=== PATIENT | female | born 1970 | race Caucasian/White ===

== ENCOUNTER → 2019-05-03 12:50 | Outpatient (CLI) | payer BC, SELFPAY ==
--- NOTE | ~2019-05-03 | MM_ITS ---
EXAMINATION: MM screening [facility] BI w radha HISTORY: Screening mammogram TECHNIQUE: Craniocaudal and mediolateral oblique 3-D tomosynthesis images were obtained and synthetic 2-D images were generated. CAD analysis was submitted and interpreted. COMPARISON: 04/16/2018, 04/03/2017, 02/29/2016 BREAST PARENCHYMAL COMPOSITION: There are scattered areas of fibroglandular density. FINDINGS: RIGHT BREAST: An asymmetry is present in the subareolar aspect of the slightly outer breast 2 cm from the nipple on the craniocaudal view. LEFT BREAST: There is a focal asymmetry in the anterior third of the subareolar aspect of the breast. IMPRESSION: 1. Bilateral breast findings as described above. 2. Additional mammographic views and possible breast ultrasound are recommended. BI-RADS Category 0: Incomplete: Needs additional imaging evaluation. Reviewed, dictated and finalized at location A. ER IMPRESSION: 1. Bilateral breast findings as described above. 2. Additional mammographic views and possible breast ultrasound are recommended . BI-RADS Category 0: Incomplete: Needs additional imaging evaluation.
== END ==
PROVIDERS: Visit Provider Obstetrics & Gynecology
DX: Z12.31 Encounter for screening mammogram for malignant neoplasm of breast (principal); R92.8 Other abnormal and inconclusive findings on diagnostic imaging of breast
CPT/HCPCS: 77063; 77067

== ENCOUNTER → 2019-05-17 08:53 | Outpatient (CLI) | payer BC, SELFPAY ==
--- NOTE | ~2019-05-17 | MMUS_ITS ---
EXAMINATION: MM diagnostic mammo BI, US breast LT limited HISTORY: Right breast asymmetry and focal asymmetry of the left breast on screening mammogram TECHNIQUE: Additional 3-D tomosynthesis images of the breasts were performed and synthetic 2-D images were generated. CAD analysis was submitted and interpreted. High resolution limited left breast ultr asound was performed. COMPARISON: 05/03/2019, 04/16/2018, 04/03/2017, 02/29/2016 FINDINGS: MAMMOGRAPHIC FINDINGS: Right breast: The subareolar right breast asymmetry described on screening mammogram does not persist with spot compression. Left breast: A subtle focal asymmetry persists in the subareolar aspect of the breast with spot compr ession. No associated architectural distortion or calcification are seen. ULTRASOUND: There is no evidence of focal suspicious solid or cystic mass in the vicinity of the mammographic fin ding in question. Mildly dilated subareolar duct is seen which accounts for the mammographic finding. IMPRESSION: 1. No mammographic or sonographic evidence of malignancy. 2. Recommend routine screening mammography in one year. BI-RADS Category 2: Benign finding(s). Reviewed, dictated and finalized at location A. DESK TROUBLE LOCATOR IMPRESSION: 1. No mammographic or sonographic evidence of malignancy. 2. Recommend routine screening mammography in one year. BI-RADS Category 2: Benign finding(s).
== END ==
PROVIDERS: Visit Provider Obstetrics & Gynecology
DX: R92.8 Other abnormal and inconclusive findings on diagnostic imaging of breast (principal)
CPT/HCPCS: 76642; 77066

== ENCOUNTER 2019-06-11 20:56 | Emergency (ER) | payer BC, SELFPAY ==
[2019-06-11 20:57] VITALS: BP 166/92; PULSE 90; RESP 20; TEMP 36.7; O2SAT 99
--- NOTE | 2019-06-11 21:32 | ED.WOUNDLAC ---
HPI - Wound/Laceration General Chief Complaint: Wound/Laceration Stated Complaint: R hand dog bite Time Seen by Provider: 06/11/19 21:32 Source: patient Mode of arrival: ambulatory Limitations: no limitations History of Present Illness HPI narrative: A 48 y/o female presents to the ED with c/o right hand wound. Pt states that yesterday morning her dog bit her in her right hand by her 5th finger. She notes that today her right arm started to hurt, so she decided to come to the ED. Pt got a Tetanus shot today at [facility]. She adds that her dog is UTD on his vaccinations. Pt declines a X-Ray in the room. She denies fever and numbness. Onset (ago): day(s) (1) Extremity Location: Right: hand (5th finger) Place: home Patient tetanus UTD: Yes Associated symptoms: pain (Right arm, right 5th finger) Related Data Home Medications Medication Instructions Recorded Confirmed amlodipine 5 mg tablet 5 mg PO DAILY 04/05/19 Allergies Allergy/AdvReac Type Severity Reaction Status Date / Time Penicillins Allergy Intermediate hives Verified 06/11/19 21:12 Review of Systems Review of Systems: All systems reviewed & are unremarkable except as noted in HPI and below Constitutional: Constitutional: Denies fever(s) Musculoskeletal: Musculoskeletal: Reports arthralgias (Right arm, right 5th finger) Integumentary/Breasts: Skin/Breast: Reports wounds (Right 5th finger) Neurologic: Denies numbness PMFSH Past Medical History Medical History (Updated 06/11/19 @ 21:50 by Jackie Maria MD) Benign reactive hypertension OAB (overactive bladder) Surgical History Surgical History (Updated 06/11/19 @ 21:37 by Ning Bell) History of anterior cruciate ligament surgery History of bunionectomy of right great toe History of section History of tubal ligation Family History Family History Father Diabetes mellitus Other Family history of cardiovascular disease Family history of kidney disease Hypertension Social History Social History Smoking status: Never smoker Second hand tobacco smoke exposure: No Alcohol intake: current Drinks per week: 2 Substance use: never Substance use type: does not use Gender identity (if verbalized by the patient): Female Exam Narrative: Exam Narrative: General appearance: Well-developed, well-nourished Skin: Normal color, right hand exam showed few scratches and 1 puncture wound at the right fifth finger. Head: Normocephalic, nontraumatic Chest and respiratory: Airway patent, no respiratory distress, no accessory muscle use Heart: Regular rate/rhythm Vascular: Normal peripheral pulses, normal capillary refill. Musculoskeletal: Normal range of motion, nontender back Course Course Emergency Course: Stable Vital Signs Vital signs: Vital Signs Temperature 36.7 C 06/11/19 20:57 Pulse Rate 90 06/11/19 20:57 Respiratory Rate 20 06/11/19 20:57 Blood Pressure 166/92 H 06/11/19 20:57 Pulse Oximetry 99 06/11/19 20:57 Temperature 36.7 C 06/11/19 20:57 Pulse Rate 90 06/11/19 20:57 Respiratory Rate 20 06/11/19 20:57 Blood Pressure 166/92 H 06/11/19 20:57 Pulse Oximetry 99 06/11/19 20:57 MDM - Wound/Laceration MDM Narrative Medical decision making narrative: Dog bite right fifth finger, yesterday, received a tetanus shot today. Concerned about infection. Patient declined x-ray of the hand rule out any bone fracture. Patient will be discharged on Augmentin. Differential Diagnosis Differential diagnosis: Likely abrasion and other (Puncture wound secondary to dog
[2019-06-11] MEDS: metroNIDAZOLE 250 MG TABLET 500 MG PO (22:17)
[2019-06-11] MEDS: DOXYCYCLINE HYCLATE 100 MG TABLET PO (22:17)
== END 2019-06-11 22:03 | disposition home or self-care (01) ==
PROVIDERS: Emergency Provider Emergency Medicine; PCP Family Medicine
DX: S61.256A Open bite of right little finger without damage to nail, initial encounter (principal); I10 Essential (primary) hypertension; N32.81 Overactive bladder; W54.0XXA Bitten by dog, initial encounter
CPT/HCPCS: 99283; A9270

== ENCOUNTER 2020-02-27 00:37 | Outpatient (CLI) | payer BC, SELFPAY ==
[2020-02-27 20:45] LABS: SARS-CoV-2 RNA PCR Negative
== END 2020-02-27 00:38 | disposition home or self-care (01) ==
LOC: ANHCOVIDDT 00:37
PROVIDERS: PCP Family Medicine; Visit Provider Internal Medicine Gastroenterology
DX: Z01.818 Encounter for other preprocedural examination (principal); Z20.828 Contact with and (suspected) exposure to other viral communicable diseases
CPT/HCPCS: 87635; C9803; U0003

== ENCOUNTER 2020-03-01 01:34 | Day surgery (SDC) | payer BC, SELFPAY ==
[2020-02-22 12:08] VITALS: BMI 31.4
--- NOTE | 2020-03-01 12:04 | WPDANESEPPF ---
Anes - Initial Pre Proc Eval Procedure: Operation Date: 03/01/20 13:45 Proposed Procedures p Screening Colonoscopy - Pa Boo MD Date/Time: 03/01/20 12:04 Surgeon: Pa Boo MD Pre Op Diagnosis: neoplasm screening Patient Data Age: 49 Gender: F Height: 5 ft 7 in Weight: 90.9 kg Allergies Allergy/AdvReac Type Severity Reaction Status Date / Time Penicillins Allergy Intermediate hives Verified 02/22/20 12:04 Home Medications Medication Instructions Recorded Confirmed Type amlodipine 5 mg-valsartan 160 mg 1 tablet PO DAILY #90 tablet 12/16/19 02/22/20 Rx tablet hydrochlorothiazide 12.5 mg tablet 12.5 mg PO DAILY #90 tablet 12/16/19 02/22/20 Rx metoprolol succinate 50 mg 50 mg PO DAILY #90 tablet 12/16/19 02/22/20 Rx tablet,extended release 24 hr phentermine 37.5 mg capsule 37.5 mg PO DAILY #30 cap 12/16/19 02/22/20 Rx peg 3350-electrolytes 236 240 ml PO Q10M #4000 ml 01/20/20 Rx gram-22.74 gram-6.74 gram-5.86 gram solution solifenacin 10 mg PO DAILY 02/22/20 02/22/20 History Patient hx anesthesia problems: none Family hx anesthesia problems: none PMFSH Past Medical History Medical History (Updated 12/16/19 @ 13:40 by Manisha Rudd PA-C) Benign reactive hypertension OAB (overactive bladder) Surgical History Surgical History History of anterior cruciate ligament surgery History of bunionectomy of right great toe History of section History of tubal ligation Family History Family History Father Diabetes mellitus Other Family history of cardiovascular disease Family history of kidney disease Hypertension Social History Social History (Updated 12/16/19 @ 13:16 by Elaina Clayton) Social History: Smoking status: Never smoker Second hand tobacco smoke exposure: No Alcohol intake: current Drinks per week: 2 Substance use: never Substance use type: does not use Living arrangements: alone Gender identity (if verbalized by the patient): Female Spiritual care concerns: No Anes - Eval Final PreProcedure Day of Procedure 03/01/20 12:04 Patient weight: overweight Heart: regular rate and rhythm Lungs: clear to auscultation Airway: Mallampati scale class II Neurological: alert and oriented Last oral intake: >/= 8 hours ASA classification: II Emergent: no Anesthetic plan: proceed Anesthesia type and monitoring: general GIVS and standard monitoring Informed Consent: The patient's anesthetic plan and its attendant risks and benefits were discussed with the patient/family/POA. Questions were solicited and answers provided to the satisfaction of the patient/family/POA.
[2020-03-01] MEDS: LACTATED RINGERS 1,000 ML 150 ML IV CONT (12:12)
[2020-03-01 12:22] VITALS: BP 155/87; PULSE 76; RESP 16; TEMP 36.4; O2SAT 98
--- NOTE | 2020-03-01 12:39 | PM.HPGS ---
History of Present Illness History of Present Illness Consent: Risks, benefits, and alternatives have been discussed and questions answered. Patient agrees to proceed with procedure. Chief complaint: neoplasm screening Narrative: Dana Castaneda is a 49 year old female here for first screening colonoscopy Review of Systems Constitutional: Constitutional: Denies headache(s) and Denies weakness Eyes: Eyes: Denies blurry vision ENT: Reports Normal hearing present, Denies headache(s) and Denies neck pain Cardiovascular: Cardiovascular: Denies chest pain and Denies dyspnea Respiratory: Respiratory: Denies dyspnea Gastrointestinal: Gastrointestinal: Reports no additional gastrointestinal complaints Genitourinary: Genitourinary: Denies dysuria Musculoskeletal: Musculoskeletal: Denies neck pain Integumentary/Breasts: Skin/Breast: Denies dry skin Neurologic: Reports Normal hearing present, Denies headache(s) and Denies weakness Psychiatric: Psychiatric: Denies anxiety Endocrine: Endocrine: Denies change in body appearance Hematologic/Lymphatic: Hematologic/Lymphatic: Denies easy bleeding Allergic/Immunologic: Allergic/Immunologic: Denies urticaria PMFSH Past Medical History Medical History (Updated 12/16/19 @ 13:40 by Manisha Rudd PA-C) Benign reactive hypertension OAB (overactive bladder) Surgical History Surgical History History of anterior cruciate ligament surgery History of bunionectomy of right great toe History of section History of tubal ligation Family History Family History Father Diabetes mellitus Other Family history of cardiovascular disease Family history of kidney disease Hypertension Social History Social History (Updated 12/16/19 @ 13:16 by Elaina Clayton) Social History: Smoking status: Never smoker Second hand tobacco smoke exposure: No Alcohol intake: current Drinks per week: 2 Substance use: never Substance use type: does not use Living arrangements: alone Gender identity (if verbalized by the patient): Female Spiritual care concerns: No Meds Home Medications and Allergies Home Medications Medication Instructions Recorded Confirmed Type amlodipine 5 mg-valsartan 160 mg 1 tablet PO DAILY #90 tablet 12/16/19 02/22/20 Rx tablet hydrochlorothiazide 12.5 mg tablet 12.5 mg PO DAILY #90 tablet 12/16/19 02/22/20 Rx metoprolol succinate 50 mg 50 mg PO DAILY #90 tablet 12/16/19 02/22/20 Rx tablet,extended release 24 hr phentermine 37.5 mg capsule 37.5 mg PO DAILY #30 cap 12/16/19 02/22/20 Rx peg 3350-electrolytes 236 240 ml PO Q10M #4000 ml 01/20/20 Rx gram-22.74 gram-6.74 gram-5.86 gram solution solifenacin 10 mg PO DAILY 02/22/20 02/22/20 History Allergies Allergy/AdvReac Type Severity Reaction Status Date / Time Penicillins Allergy Intermediate hives Verified 03/01/20 12:21 Vital Signs Vital Signs - 24 hr 03/01/20 12:22 Temperature 97.6 F Pulse Rate 76 Respiratory Rate 16 Blood Pressure 155/87 H Pulse Oximetry 98 Exam Const: General: comfortable and no acute distress HENMT: General nose exam: Normal nares present Eyes: General: appearance normal, both eyes and all related structures Neck: Neck: no JVD Resp: Auscultation: clear to auscultation bilaterally Cardio: Rate: regular rate Rhythm: regular rhythm GI: Inspection: non-distended GI Palp: Yes Soft to palpation Skin: General skin exam: normal color Neuro: General: gait normal Speech: normal speech Extrem: General: normal to inspection Psych: Mental Status: mental status grossly normal Assessment and Plan Assessment and plan (1) Screening for colon cancer: Code(s): Z12.11 - Encounter for screening for malignant neoplasm of colon Status: Acute Assessment and Plan: will proc
[2020-03-01 12:56] VITALS: BP 117/77; PULSE 73; RESP 20; O2SAT 100
[2020-03-01 13:06] VITALS: BP 120/77; PULSE 73; RESP 20; O2SAT 100
[2020-03-01 13:16] VITALS: BP 132/86; PULSE 58; RESP 20; O2SAT 100
== END 2020-03-01 13:35 | disposition home or self-care (01) ==
PROVIDERS: PCP Family Medicine; Visit Provider Internal Medicine Gastroenterology
PROC: 0DJD8ZZ Inspection of Lower Intestinal Tract, Via Natural or Artificial Opening Endoscopic (ICD-10-PCS; CPT 45378; principal; 2020-03-01 13:45)
DX: Z12.11 Encounter for screening for malignant neoplasm of colon (principal); D12.0 Benign neoplasm of cecum; D12.3 Benign neoplasm of transverse colon; K57.30 Diverticulosis of large intestine without perforation or abscess without bleeding; K62.89 Other specified diseases of anus and rectum; K64.8 Other hemorrhoids; I10 Essential (primary) hypertension; N32.81 Overactive bladder
CPT/HCPCS: 45380; 45385; 88305; J2704; J7120

== ENCOUNTER 2020-03-15 09:16 | Outpatient (NON) | payer BC, SELFPAY ==
[2020-03-15 22:01] LABS: SARS-CoV-2 RNA PCR Positive
== END 2020-03-15 09:17 ==
LOC: ANHCOVIDDT 09:17
PROVIDERS: PCP Family Medicine; Visit Provider Physician Assistant
DX: U07.1 COVID-19 (principal)
CPT/HCPCS: 87635; C9803; U0003

== ENCOUNTER → 2020-05-30 15:56 | Outpatient (CLI) | payer BC, SELFPAY ==
--- NOTE | ~2020-05-30 | MM_ITS ---
EXAMINATION: MM screening [facility] BI w radha HISTORY: Screening TECHNIQUE: Craniocaudal and mediolateral oblique 3-D tomosynthesis images were obtained and synthetic 2-D images were generated. CAD analysis was submitted and interpreted. COMPARISON: Comparison to multiple prior studies sequentially, with oldest reviewed study dated 01/28. BREAST PARENCHYMAL COMPOSITION: There are scattered areas of fibroglandular density. FINDINGS: There is no evidence of suspicious mass, calcification, or architectural distortion to sugg est malignancy in either breast. There has been no suspicious interval change. IMPRESSION: 1. No mammographic evidence of malignancy. 2. Recommend routine screening mammography in one year. BI-RADS Category 1: Negative Reviewed, dictated and finalized at location A. UTER NETWORK SUPPORT SPECIALIST
== END ==
PROVIDERS: Visit Provider Obstetrics & Gynecology
DX: Z12.31 Encounter for screening mammogram for malignant neoplasm of breast (principal)
CPT/HCPCS: 77063; 77067

== ENCOUNTER → 2020-07-17 03:47 | Outpatient (CLI) | payer BC, SELFPAY ==
[2020-07-17 20:31] LABS: SARS-CoV-2 RNA PCR Negative
== END ==
PROVIDERS: Visit Provider Podiatrist Foot & Ankle Surgery
DX: Z01.812 Encounter for preprocedural laboratory examination (principal); Z20.822 Contact with and (suspected) exposure to COVID-19
CPT/HCPCS: C9803; U0003; U0005

== ENCOUNTER 2020-07-17 08:42 | Outpatient (CLI) | payer BC, SELFPAY ==
[2020-07-17 10:18] LABS: Anion Gap 4 mmol/L (8-16); Blood Urea Nitrogen 14 mg/dL (7-17); Carbon Dioxide 32 mmol/L (22-30); Chloride 104 mmol/L (98-107); Estimated Glomerular Filt Rate > 60; Glucose 92 mg/dL (65-105); Potassium 4.1 mmol/L (3.4-5.0); Sodium 140 mmol/L (137-145)
--- NOTE | 2020-07-17 10:30 | ECG_ITS ---
Measurements Intervals [place] Rate: 74 P: -4 OK: 188 QRS: 7 QRSD: 90 T: 38 QT: 369 QTc: 411 Interpretive Statements SINUS RHYTHM POOR R WAVE PROGRESSION, ANTERIOR LEADS BASELINE ARTIFACT- I, II, III, AVR, AVL BORDERLINE ECG Electronically Signed On 07-17-2020 8:58:12 CDT by Alex Sanchez D.O.
== END 2020-07-17 08:43 | disposition home or self-care (01) ==
LOC: ANHSURGERY 08:45
PROVIDERS: Anesthesiology; PCP Family Medicine; Visit Provider Podiatrist Foot & Ankle Surgery
DX: Z79.899 Other long term (current) drug therapy (principal); I10 Essential (primary) hypertension; Z01.818 Encounter for other preprocedural examination
CPT/HCPCS: 36415; 80048; 93005

== ENCOUNTER 2020-07-20 02:04 | Day surgery (SDC) | payer BC, SELFPAY ==
[2020-07-11 13:37] VITALS: BMI 32.1
[2020-07-20] VITALS (7 sets, daily range): BP systolic 120–138; BP diastolic 72–85; PULSE 62–72; RESP 12–16; TEMP 36.5–37.2; O2SAT 96–100; BMI 32.9
--- NOTE | ~2020-07-20 | XR_ITS ---
EXAMINATION: XR surgery orthopedic DATE: 07/20/2020 10:41 INDICATION: Right foot arthrodesis TECHNIQUE: A fluoroscopic images of the right forefoot were obtained during procedure performed by Dr Scott Garcia. Radiologist was not present for the imaging or procedure. The amount of fluoroscopy time used during this procedure was 0.2 minutes. COMPARISON: None. FINDINGS: Ton Cylinder Inspector image demonstrates increased sclerosis and lucency along with loss of bone stock centered at th e first metatarsophalangeal joint reportedly related to a prior arthroplasty with failed Silastic imp lant. Subsequent images demonstrate placement of a dorsal plate and screws spanning the first metatar sophalangeal joint for attempted arthrodesis. Alignment following the fixation appears near-anatomic. No fractures identified. Remaining profile joint spaces in the forefoot appear relatively preserved. IMPRESSION: 1. Fluoroscopy utilized during reported Silastic implant explantation and subsequent instrumented fir st metatarsophalangeal arthrodesis. See procedure note for further detail. Reviewed, dictated and finalized at location A. IMPRESSION: 1. Fluoroscopy utilized during reported Silastic implant explantation and subse quent instrumented first metatarsophalangeal arthrodesis. See procedure note fo r further detail.
--- NOTE | 2020-07-20 07:14 | WPDHPUPDATE1 ---
History and Physical Update Update Date/Time: 07/20/20 07:14 History and Physical has been reviewed, including an updated exam of the patient. There are NO changes in the patient's condition. Risks, benefits, and alternatives have been discussed and questions answered. Patient agrees to proceed with procedure.
--- NOTE | 2020-07-20 07:14 | WPDANESEPPF ---
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 Patient Data Age: 49 Gender: F Height: 5 ft 7 in Weight: 93 kg Allergies Allergy/AdvReac Type Severity Reaction Status Date / Time Penicillins Allergy Intermediate hives Verified 07/11/20 13:36 Home Medications Medication Instructions Recorded Confirmed Type metoprolol succinate 50 mg 50 mg PO DAILY #90 tablet 12/16/19 07/11/20 Rx tablet,extended release 24 hr solifenacin 10 mg PO DAILY 02/22/20 07/11/20 History phentermine 37.5 mg capsule 37.5 mg PO DAILY #30 cap 04/18/20 07/11/20 Rx hydrochlorothiazide 12.5 mg tablet 12.5 mg PO DAILY #90 tablet 06/25/20 07/11/20 Rx amlodipine 5 mg-valsartan 160 mg 1 tablet PO DAILY #90 tablet 07/06/20 07/11/20 Rx tablet cholecalciferol (vitamin D3) 125 mcg PO DAILY 07/11/20 07/11/20 History [Vitamin D3] Patient hx anesthesia problems: none Family hx anesthesia problems: none PMFSH Past Medical History Medical History (Updated 07/20/20 @ 07:15 by Cam Todd MD) Benign reactive hypertension OAB (overactive bladder) Obesity Surgical History Surgical History History of anterior cruciate ligament surgery History of bunionectomy of right great toe History of section History of tubal ligation Family History Family History Father Diabetes mellitus Other Family history of cardiovascular disease Family history of kidney disease Hypertension Social History Social History Social History: Smoking status: Never smoker Second hand tobacco smoke exposure: No Alcohol intake: current Drinks per week: 2 Substance use: never Substance use type: does not use Living arrangements: alone Gender identity (if verbalized by the patient): Female Spiritual care concerns: No Anes - Eval Final PreProcedure Day of Procedure 07/20/20 07:14 Patient weight: obese Heart: regular rate and rhythm Lungs: clear to auscultation Airway: Mallampati scale class II Neurological: alert and oriented Last oral intake: >/= 8 hours ASA classification: II Emergent: no Anesthetic plan: proceed Anesthesia type and monitoring: general LMA and standard monitoring Informed Consent: The patient's anesthetic plan and its attendant risks and benefits were discussed with the patient/family/POA. Questions were solicited and answers provided to the satisfaction of the patient/family/POA.
[2020-07-20] MEDS: LACTATED RINGERS 1,000 ML 30 ML IV CONT ×2 (08:04→10:58)
[2020-07-20] MEDS: CLINDAMYCIN 900 MG/D5W 50 ML 900 MG/50 ML PIGGYBACK 50 MG IVPB (08:44)
[2020-07-20] MEDS: KETOROLAC 30 MG/ML VIAL (*BKC) IV PUSH (10:09)
--- NOTE | 2020-07-20 11:00 | SUR.OPER ---
Ribera right foot implants Mtp Fusion Plate [id number] - 1 2.7X12 LOCKING SCREW [id number] - 2 2.7X14 LOCKING SCREW [id number] -1 3.5X16 NONLOCKING SCREW [id number] - 1
--- NOTE | 2020-07-20 11:10 | PM.PROC ---
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 Painful failed silastic implant right foot 2. Joint degeneration first metatarsal phalangeal joint right foot Post-op diagnosis: same Procedure performed: 1. Removal of deep orthopedic hardware right foot 2. Arthrodesis of the first metatarsal phalangeal joint right foot with allograft 3. Bone marrow aspiration of calcaneus right foot Implants: 1. [employer] 5cc of Allomatrix DBM putty 2. [employer] Bone marrow aspirate kit 3. [employer] Tricortical Allograft 4. [employer] Cross check plate with three (2.7mm locking screws) one (3.5mm non locking screw) 5. [employer] Augment Anesthesia: GLMA and local Surgeon: Jr Garcia JR, DPM Estimated blood loss (mL): 5 Drains: No Packing: No Pathology: yes (Silastic implant with grommets and dark inflammatory tissue sent for gross and histopathology) Complications: No immediate complications Condition: stable Disposition: same day Findings: PROCEDURE IN DETAIL: Under mild sedation, the patient was brought into the operating room, placed on the operating table in supine position. A pneumatic ankle tourniquet was placed about the patient's ipsilateral ankle. Following general anesthesia, a common peroneal and tibial nerve block was performed with 20 cc of Exparel. The foot was then scrubbed, prepped, and draped in the usual aseptic manner. An Esmarch bandage was then used to exsanguinate the patient's foot and the pneumatic ankle tourniquet was then inflated. Surgery began in the following manner: Attention was directed to the dorsal aspect of the 1st metatarsophalangeal joint where there was a large subcutaneous prominence noted along the dorsomedial aspect of the joint. The entire joint was edematous. The incision was made starting along the central shaft of the 1st metatarsal and extending just proximal to the interphalangeal joint of the hallux. The incision was continued deep down through the subcutaneous tissues using sharp and blunt dissection. The capsule was ko in discoloration. All bleeders were cauterized as necessary. At this point, the dissection was continued down to the level of the periosteum and capsular structures overlying the 1st metatarsophalangeal joint. A full length periosteum and capsular incision was made just medial to the extensor hallucis longus tendon. The periosteum and capsular structures were freed from the base of the proximal phalanx as well as the distal 1st metatarsal. At this point, the 1st metatarsophalangeal joint was identified. There was a full silastic implant and grommets visualized within the first metatarsal phalangeal joint. The dark inflammatory tissue and bone was excised and sent for gross and histopathology along with the implant. Utilizing a sagittal bone saw, the hypertrophied 1st metatarsal was resected dorsally, medially, and laterally furthermore the sagittal saw blade was used to resect the nonviable bone until healthy bleeding bone was noted. A power bur was used to make sure that there were no remaining discolored bone. Nearly 18mm deficit of bone was noted after removal of implant. Next, a small 2mm incision was placed along the lateral wall of the calcaneus. The [employer] bone marrow aspirate kit was used to penetrate the calcaneus and draw approximately 2ccs of bone marrow aspirate. It was mixed with [employer] Allomatrix DR esteves until a solid consistency was developed. Next, 18mm by 16mm by 16mm wedge of [employer] allograft was contoured with a sagittal saw blade and rotary power huyen, to fill the bone deficit that remained after removal of the silastic implant and metal grommets. Fluoroscopy was used to make sure that, the bone fit tightly in the bone deficit and that the hallux was in a rectus position. Next, a 2-0 drill bit was used to further fenestrate the distal first metatarsal and head
[2020-07-20] MEDS: oxyCODONE HCL (*CRX) 5 MG TAB IR PO (12:14)
== END 2020-07-20 13:00 | disposition home or self-care (01) ==
PROVIDERS: PCP Family Medicine; Visit Provider Podiatrist Foot & Ankle Surgery
PROC: (CPT 28750; principal; 2020-07-20 09:00)
PROC: (CPT 28750; 2020-07-20 09:00)
DX: T84.84XA Pain due to internal orthopedic prosthetic devices, implants and grafts, initial encounter (principal); T84.498A Other mechanical complication of other internal orthopedic devices, implants and grafts, initial encounter; M19.071 Primary osteoarthritis, right ankle and foot; M65.861 Other synovitis and tenosynovitis, right lower leg; Y83.8 Other surgical procedures as the cause of abnormal reaction of the patient, or of later complication, without mention of misadventure at the time of the procedure; N32.81 Overactive bladder; I10 Essential (primary) hypertension; E66.9 Obesity, unspecified; Z68.32 Body mass index [BMI] 32.0-32.9, adult
CPT/HCPCS: 28750; 20680; 20999; 88304; A9270; C1713; C9290; J1100; J1170; J1885; J2250; J2405; J2704; J3010; J7120

== ENCOUNTER 2020-08-06 10:37 | Outpatient (CLI) | payer BC, SELFPAY ==
--- NOTE | ~2020-08-06 | US_ITS ---
EXAMINATION: US venous doppler LE RT DATE: 08/06/2020 11:25 INDICATION: Right lower limb pain and swelling. TECHNIQUE: Grayscale ultrasound images without and with compression and Doppler ultrasound images of the right lower extremity veins were obtained. COMPARISON: None. FINDINGS: The visualized portions of right common femoral vein, profunda (deep) femoral vein, femoral vein, pop liteal vein, peroneal veins, posterior tibial veins, and greater saphenous vein outflow are patent. IMPRESSION: 1. No deep venous thrombosis. Reviewed, dictated and finalized at location B.
== END 2020-08-06 10:38 | disposition home or self-care (01) ==
LOC: ANHIMG 10:37
PROVIDERS: PCP Family Medicine; Visit Provider Podiatrist Foot & Ankle Surgery
DX: M79.89 Other specified soft tissue disorders (principal)
CPT/HCPCS: 93971

== ENCOUNTER 2021-01-09 08:54 | Outpatient (CLI) | payer BC, SELFPAY ==
[2021-01-09 09:44] LABS: Anion Gap 8 mmol/L (8-16); Blood Urea Nitrogen 14 mg/dL (7-17); Calcium 9.9 mg/dL (8.4-10.2); Carbon Dioxide 28 mmol/L (22-30); Chloride 105 mmol/L (98-107); Estimated Glomerular Filt Rate > 60; Glucose 107 mg/dL (65-110); Potassium 4.2 mmol/L (3.4-5.0); Sodium 141 mmol/L (137-145)
== END 2021-01-09 08:55 | disposition home or self-care (01) ==
LOC: ANHSURGERY 08:57
PROVIDERS: Anesthesiology; PCP Family Medicine; Visit Provider Podiatrist Foot & Ankle Surgery
DX: Z01.818 Encounter for other preprocedural examination (principal); I10 Essential (primary) hypertension
CPT/HCPCS: 36415; 80048

== ENCOUNTER 2021-01-11 01:03 | Day surgery (SDC) | payer BC, SELFPAY ==
[2021-01-02 14:40] VITALS: BMI 34.5
--- NOTE | ~2021-01-11 | XR_ITS ---
XR surgery orthopedic DATE: 01/11/2021 08:27 INDICATION: Removal of hardware from foot TECHNIQUE: 2 spot C-arm images of the great toe 11 seconds fluoroscopy time 0.8497 cGycm2 total DAP COMPARISON: None FINDINGS: A K wire extends longitudinally through the distal and proximal phalanges into the medial d istal shaft of the first metatarsal bone. Reviewed, dictated and finalized at [facility]. Reviewed, dictated and finalized at location [facility].
[2021-01-11] MEDS: LACTATED RINGERS 1,000 ML 30 ML IV CONT (06:57)
[2021-01-11 06:59] VITALS: BP 135/83; PULSE 73; TEMP 36.8; O2SAT 98
--- NOTE | 2021-01-11 07:02 | P.PNAN_ITS ---
Anes - Initial Pre Proc Eval Procedure: Operation Date: 01/11/21 07:30 Proposed Procedures p Removal of Painful Deep Orthopedic Hardware Right Foot, - Jr Garcia JR, MD s [place] Wire Fixation of Right Hallux and Metatarsal Phalangeal Joint - Jr Garcia JR, MD Date/Time: 01/11/21 07:02 Surgeon: Jr Garcia JR, MD Pre Op Diagnosis: painful hardware right foot Patient Data Age: 50 Gender: F Height: 1.7 m Weight: 100 kg Allergies Allergy/AdvReac Type Severity Reaction Status Date / Time Penicillins Allergy Intermediate hives Verified 01/11/21 06:15 Home Medications Medication Instructions Recorded Confirmed Type solifenacin 10 mg PO DAILY 02/22/20 01/11/21 History cholecalciferol (vitamin D3) 125 mcg PO DAILY 07/11/20 01/11/21 History [Vitamin D3] hydroxychloroquine 200 mg tablet 400 mg PO DAILY #60 tablet 11/30/20 01/11/21 Rx amlodipine 5 mg-valsartan 160 mg 1 tablet PO DAILY #90 tablet 12/20/20 01/11/21 Rx tablet hydrochlorothiazide 12.5 mg tablet 12.5 mg PO DAILY #90 tablet 12/20/20 01/11/21 Rx metoprolol succinate 50 mg 50 mg PO DAILY #90 tablet 12/20/20 01/11/21 Rx tablet,extended release 24 hr Patient hx anesthesia problems: none Family hx anesthesia problems: none Results Review: All pre-operative results and documents have been reviewed as part of the pre-operative evaluation. [facility] Past Medical History Medical History Benign reactive hypertension OAB (overactive bladder) Obesity Surgical History Surgical History History of anterior cruciate ligament surgery History of bunionectomy of right great toe History of section History of tubal ligation Family History Family History Father Diabetes mellitus Other Family history of cardiovascular disease Family history of kidney disease Hypertension Social History Social History Social History: Smoking status: Never smoker Second hand tobacco smoke exposure: No Alcohol intake: current Drinks per week: 2 Substance use: never Substance use type: does not use Living arrangements: alone Gender identity (if verbalized by the patient): Female Sexual Orientation (if Verbalized by the Patient): Straight or Heterosexual Spiritual care concerns: No Anes - Eval Final PreProcedure Day of Procedure 01/11/21 07:02 Patient weight: obese Heart: regular rate and rhythm Lungs: clear to auscultation Airway: Mallampati scale class II Neurological: alert and oriented Last oral intake: >/= 8 hours ASA classification: II Emergent: no Anesthetic plan: proceed Anesthesia type and monitoring: general and standard monitoring Results Review: All pre-operative results and documents have been reviewed as part of the pre-operative evaluation. Informed Consent: The patient's anesthetic plan and its attendant risks and benefits were discussed with the patient/family/POA. Questions were solicited and answers provided to the satisfaction of the patient/family/POA.
--- NOTE | 2021-01-11 07:18 | WPDHPUPDATE1 ---
History and Physical Update Update Date/Time: 01/11/21 07:18 History and Physical has been reviewed, including an updated exam of the patient. There are NO changes in the patient's condition. Risks, benefits, and alternatives have been discussed and questions answered. Patient agrees to proceed with procedure.
[2021-01-11] MEDS: LIDOCAINE HCL 2% PF INJ 5 ML VIAL 10 ML INFILTRATE (07:31)
[2021-01-11] MEDS: ceFAZolin 2 GM/D5W 50 ML 2 GM/50 ML BAG IVPB (07:31)
[2021-01-11] MEDS: BUPIVACAINE HCL 0.5% PF 30 ML VIAL INFILTRATE (07:31)
[2021-01-11 08:43] VITALS: BP 112/69; PULSE 74; RESP 12; O2SAT 96
--- NOTE | 2021-01-11 08:55 | PM.OP ---
Procedure Note - Brief Procedure Note - Brief Date of procedure: 01/11/21 Pre-op diagnosis: painful hardware right foot Post-op diagnosis: same Procedure performed: 1. Hardware removal right foot 2. K wire stabilization of first metatarsal phalangeal joint right foot Implants: 0.062 k wire Anesthesia: MAC and local Surgeon: Jr Garcia JR, DPM Estimated blood loss (mL): 1 Drains: No Packing: No Pathology: none sent Complications: No immediate complications Condition: stable Disposition: same day
[2021-01-11 09:15] VITALS: BP 138/89; PULSE 70
[2021-01-11 09:45] VITALS: BP 133/89; PULSE 70
--- NOTE | 2021-01-11 10:43 | SUR.PHASEII ---
Cam boot applied at discharge.
--- NOTE | 2021-01-11 10:57 | W.PM.PROC2 ---
Procedure Note - Detailed Date of Procedure 01/11/21 Pre-op Diagnosis painful hardware right foot Post-op Diagnosis same Procedure Performed 1. Removal of painful deep orthopedic hardware right foot 2. Stabilization of first metatarsal phalangeal joint right foot with K wire fixation Surgeon Jr Garcia JR, SWETHA Anesthesia MAC and local Indications 1. Painful prominent hardware right foot 2. Non union first metatarsal phalangeal joint right foot Description of Procedure Under mild sedation, the patient was brought in to the operating room, placed on the operating table in the supine position. A pneumatic ankle tourniquet was placed about the patient's leg. Following monitored anesthesia care, local anesthesia was obtained about the patients ankle utilizing 20 mL of a 1:1 mixture of 2% Lidocaine plain and 0.5% Marcaine plain. The foot was then scrubbed, prepped, and draped in the usual aseptic manner. An Esmarch bandage was then used to exsanguinate the patient's foot and the pneumatic ankle tourniquet was then inflated. An incision was made along the dorsal aspect of the first metatarsal phalangeal joint right foot. Dissection was continued to the subcutaneous tissues all bleeders were cauterized as necessary. A full length periosteal and capsular incision was made overlying the dorsal aspect of the first metatarsal phalangeal joint arthrodesis site. The dorsal plate and screws were removed in toto. Fluoroscopy was used to confirm complete hardware removal. There was significant scar tissue overlying the dorsum of the joint. This hypertrophic scar tissue was excised. Moreover, there was hypertrophic bone over growth overlying the attempted bone block arthrodesis site as well as central first metatarsal and remaining proximal phalanx. There was incomplete union of the arthrodesis site however there was fibroosseous tissue holding the bone block rigidly so it was left in place. Deep aerobic and anaerobic wound cultures were taken. The wound site was flushed with sterile saline. I did retrograde a 0.062 K wire in order to allow continued stabilization and scarring of the digit in a rectus position. Fluoroscopy was used to confirm adequate placement of the K wire. Next, the periosteum and capsule was reapproximated with 3-0 Capsule, The subcutaneous tissue was reapproximated with 4-0 Vicryl and last the skin was reapproximated and coapted utilizing 4-0 Monocryl in a running subcuticular suture fashion technique. Upon completion of the procedure, the incision was dressed with Steri strips Adaptic, 4x4s, Kerlix, and Coban. The pneumatic calf tourniquet was then deflated and a prompt hyperemic response was noted to all digits of the foot. The Cam walker boot will be applied in PACU. The patient did very well with the procedure and the anesthesia. The patient was transferred to the recovery room with vital signs stable and vascular status intact to all toes of the foot. Following a period of postoperative monitoring, the patient will be discharged home on the following written and oral postoperative instructions: 1. The patient should keep the dressing clean, dry, and intact. Use a cast protector bag with showers. 2. The patient will be protected weightbearing with CAM boot. 3. Patient should ice and elevate the affected lower extremity while at rest. 4. The patient is to contact Dr. Garcia for all postop care and if any problems arise. 5. Prescriptions were written for Percocet 5/325 dispensed 40 to be taken 1 p.o. q.4-6 hours as needed for severe pain. Implants one 0.062 k wire Estimated Blood Loss 1 Drains No Packing No Pathology yes (deep wound culture swab sent for aerobic and anaerobic culture and sensitivity) Complications No immediate complications Condition stable Disposition same day
== END 2021-01-11 10:09 | disposition home or self-care (01) ==
PROVIDERS: PCP Family Medicine; Visit Provider Podiatrist Foot & Ankle Surgery
PROC: (CPT 28750; principal; 2021-01-11 07:30)
PROC: (CPT 28104; 2021-01-11 07:30)
DX: T84.84XA Pain due to internal orthopedic prosthetic devices, implants and grafts, initial encounter (principal); M79.671 Pain in right foot; M96.0 Pseudarthrosis after fusion or arthrodesis; I10 Essential (primary) hypertension; N32.81 Overactive bladder; E66.9 Obesity, unspecified; Z68.35 Body mass index [BMI] 35.0-35.9, adult
CPT/HCPCS: 28750; 87070; 87075; 87205; C1713; J0690; J2250; J2405; J2704; J3010; J7120

== ENCOUNTER → 2021-08-08 10:20 | Outpatient (CLI) | payer BC, SELFPAY ==
--- NOTE | ~2021-08-08 | MM_ITS ---
EXAMINATION: MM screening danelle BI w radha HISTORY: Screening TECHNIQUE: Craniocaudal and mediolateral oblique 3-D tomosynthesis images were obtained and synthetic 2-D images were generated. CAD analysis was submitted and interpreted. COMPARISON: No prior mammogram is available for comparison at this institution. BREAST PARENCHYMAL COMPOSITION: There are scattered areas of fibroglandular density. FINDINGS: There is no evidence of suspicious mass, calcification, or architectural distortion to sugg est malignancy in either breast. There has been no suspicious interval change. IMPRESSION: 1. No mammographic evidence of malignancy. 2. Recommend routine screening mammography in one year. BI-RADS Category 1: Negative Reviewed, dictated and finalized at location [facility].
== END ==
PROVIDERS: PCP Family Medicine; Visit Provider Nurse Practitioner
DX: Z12.31 Encounter for screening mammogram for malignant neoplasm of breast (principal)
CPT/HCPCS: 77063; 77067

== ENCOUNTER 2022-08-01 16:06 | Outpatient (CLI) | payer BC, SELFPAY ==
--- NOTE | ~2022-08-01 | XR_ITS ---
EXAM: XR knee LT min 4V DATE: 08/01/2022 16:34 HISTORY: M25.562 - Pain in left knee, NKI . COMPARISON: None available. FINDINGS: Normal mineralization. No fracture or dislocation. No lytic or blastic lesion. Severe medi al joint space narrowing and moderate tricompartmental osteophytosis. Small volume joint fluid. No er osion or periosteal change. Soft tissues within normal limits. IMPRESSION: Tricompartmental left knee osteoarthritis, severe in the medial compartment. Reviewed, dictated and finalized at location K. IMPRESSION: Tricompartmental left knee osteoarthritis, severe in the medial com partment.
== END 2022-08-01 16:07 | disposition home or self-care (01) ==
LOC: ANHIMG 16:10
PROVIDERS: PCP Family Medicine; Visit Provider Nurse Practitioner Gerontology
DX: M17.12 Unilateral primary osteoarthritis, left knee (principal)
CPT/HCPCS: 73564

== ENCOUNTER → 2022-12-02 13:08 | Outpatient (CLI) | payer OTHER, SELFPAY ==
--- NOTE | ~2022-12-02 | MM_ITS ---
EXAMINATION: MM screening danelle BI w radha HISTORY: Screening mammogram TECHNIQUE: Craniocaudal and mediolateral oblique 3-D tomosynthesis images were obtained and synthetic 2-D images were generated. CAD analysis was submitted and interpreted. COMPARISON: 08/08/2021, 06/16/2020 bilateral screening mammogram examinations BREAST PARENCHYMAL COMPOSITION: There are scattered areas of fibroglandular density. FINDINGS: There is no evidence of suspicious mass, calcification, or architectural distortion to sugg est malignancy in either breast. There has been no suspicious interval change. IMPRESSION: 1. No mammographic evidence of malignancy. 2. Recommend routine screening mammography in one year. BI-RADS Category 1: Negative Reviewed, dictated and finalized at location A.
== END ==
PROVIDERS: PCP Nurse Practitioner; Visit Provider Nurse Practitioner
DX: Z12.31 Encounter for screening mammogram for malignant neoplasm of breast (principal)
CPT/HCPCS: 77063; 77067

== ENCOUNTER 2023-03-10 12:49 | Outpatient (CLI) | payer OTHER, SELFPAY ==
[2023-03-10 13:10] LABS: Hematocrit 43.9 % (37.0-47.0); Hemoglobin 14.7 g/dL (12.0-15.0)
--- NOTE | 2023-03-10 13:14 | ECG_ITS ---
Measurements Intervals [place] Rate: 70 P: 6 PA: 206 QRS: -25 QRSD: 95 T: 53 QT: 382 QTc: 413 Interpretive Statements SINUS RHYTHM BORDERLINE LEFT AXIS DEVIATION [QRS AXIS < -20] BORDERLINE ECG COMPARED TO ECG 07/17/2020 08:54:19 NO SIGNIFICANT CHANGES Electronically Signed On 03-11-2023 10:31:04 ADMINISTRATIVE SUPPORT CLERK by Darrion Fernando M.D.
[2023-03-10 13:23] LABS: Albumin Level 4.5 g/dL (3.5-5.1); Estimated Glomerular Filt Rate > 60; Glucose 88 mg/dL (65-110)
[2023-03-10 14:02] LABS: Hemoglobin A1C 5.8 % (<5.7)
[2023-03-10 14:07] LABS: Urine Cotinine NEGATIVE
== END 2023-03-10 12:50 | disposition home or self-care (01) ==
LOC: ANHLAB 12:52
PROVIDERS: PCP Family Medicine; Visit Provider Orthopaedic Surgery
DX: Z01.818 Encounter for other preprocedural examination (principal); E78.2 Mixed hyperlipidemia; I10 Essential (primary) hypertension; M17.0 Bilateral primary osteoarthritis of knee
CPT/HCPCS: 80307; 82040; 82565; 82947; 83036; 85014; 85018; 93005

== ENCOUNTER 2023-05-20 07:46 | Outpatient (CLI) | payer OTHER, SELFPAY ==
[2023-05-20 09:10] LABS: Basophils Absolute Auto 0.1 K/mm3 (0.0-0.1); Eosinophils Absolute Auto 0.2 K/mm3 (0-0.3); Eosinophils Percent Auto 2.3 % (0-4.4); Hematocrit 44.1 % (37.0-47.0); Hemoglobin 14.1 g/dL (12.0-15.0); Immature Granulocyte Absolute 0.04 K/mm3 (0.00-0.031); Immature Granulocyte Percent A 0.5 % (0-0.5); Lymphocytes Absolute Auto 2.13 K/mm3 (0.9-3.2); Lymphocytes Percent Auto 24.8 % (18.3-44.2); Mean Corpuscular Hemoglobin 30.3 pg (26-34); Mean Corpuscular Volume 94.8 fl (80-100); Mean Platelet Volume 10.1 fl (7.4-10.4); Monocytes Absolute Auto 0.8 K/mm3 (0.1-0.6); Monocytes Percent Auto 9.2 % (2.6-8.5); Neutrophils Absolute Auto 5.4 K/mm3 (1.3-6.7); Neutrophils Percent Auto 62.2 % (45.5-73.1); Platelet Count Result 386 k/mm3 (150-375); Red Blood Count 4.65 M/mm3 (4.2-5.4); Red Cell Distribution Width 13.2 % (11.5-14.5); White Blood Count 8.6 K/mm3 (4.5-10.0)
[2023-05-20 09:20] LABS: Albumin Level 4.4 g/dL (3.5-5.1)
[2023-05-20 09:21] LABS: Urine Cotinine NEGATIVE
[2023-05-20 09:25] LABS: Hemoglobin A1C 5.9 % (<5.7)
[2023-05-20 10:06] LABS: Anion Gap 8 mmol/L (8-16); Blood Urea Nitrogen 20 mg/dL (7-17); Calcium 9.8 mg/dL (8.4-10.2); Carbon Dioxide 27 mmol/L (22-30); Chloride 106 mmol/L (98-107); Estimated Glomerular Filt Rate > 60; Glucose 92 mg/dL (65-110); Potassium 3.9 mmol/L (3.4-5.0); Sodium 141 mmol/L (137-145)
[2023-05-20 10:24] LABS: MRSA (PCR) NOT DETECTED (NOT DETECTE)
== END 2023-05-20 07:47 | disposition home or self-care (01) ==
LOC: ANHSURGERY 07:50
PROVIDERS: Anesthesiology; PCP Family Medicine; Visit Provider Orthopaedic Surgery
DX: M17.11 Unilateral primary osteoarthritis, right knee (principal); I10 Essential (primary) hypertension; Z01.818 Encounter for other preprocedural examination
CPT/HCPCS: 36415; 80048; 80307; 82040; 83036; 85025; 87641

== ENCOUNTER 2023-09-30 13:41 | Outpatient (CLI) | payer OTHER, SELFPAY ==
[2023-09-30 15:29] LABS: Urine Cotinine NEGATIVE
[2023-09-30 16:31] LABS: MRSA (PCR) NOT DETECTED (NOT DETECTE)
== END 2023-09-30 13:42 | disposition home or self-care (01) ==
LOC: ANHSURGERY 13:44
PROVIDERS: PCP Family Medicine; Visit Provider Orthopaedic Surgery
DX: M17.11 Unilateral primary osteoarthritis, right knee (principal); Z01.818 Encounter for other preprocedural examination
CPT/HCPCS: 80307; 87641

== ENCOUNTER 2023-10-27 00:33 | Day surgery (SDC) | payer OTHER, SELFPAY ==
[2023-05-20 07:55] VITALS: BMI 37.8
--- NOTE | 2023-05-20 08:15 | PC.NURSE ---
Addendum entered by Pilar Cunningham RN 05/20/23 08:36: LAST DOSE DICLOFENAC 06/03/23 Original Note: Report to the Outpatient Waiting Room, entrance under the green pavilion located off [facility], at time 0830 on date __06/11/23 . Planned Procedure Time: ___1030 . Time changes happen often and if your time is changed the preop area will call you the afternoon before. - You and your visitor will be asked to self-screen and do not enter if you have any COVID symptoms. - A mask is optional within the hospital at this time. Patients may have clear liquids (water, carbonated beverages, clear teas, apple juice) until 3 hours prior to surgery(7:30 AM) with a maximum of 20 ounces. - No food from midnight until time of surgery - Infants may have breast milk until 4 hours before surgery, infant formula 6 hours prior to surgery. - Children will be allowed to drink immediately following surgery. If applicable, please bring a bottle or sippy cup to assist with drinking. Juice, water, soda, and popsicles are readily available. For infants on formula, please bring formula the day of surgery. Pacifiers are allowed. Take the following medications with a SIP of water the morning of surgery: ___METOPROLOL DO NOT STOP ANY OF YOUR OTHER PRESCRIPTION MEDICATIONS PRIOR TO SURGERY ?EXCEPT THE FOLLOWING Medications to discontinue per physician __HOLD DICLOFENAC 7 DAYS PRE OP PER DR BURDICK, HOLD ALL VITAMINS 3 DAYS PRE OP,LAST DOSE 06/07/23__MAY TAKE TYLENOL IF NEEDED FOR PAIN Please no make-up, nail south korean, hairspray, perfume, deodorant, or body powder the day of surgery. No jewelry (including any body piercings) or valuables the day of surgery, leave them at home. Please take a shower or bath the night before, or the morning of, surgery with an antibacterial soap. Wear comfortable, loose fitting clothing. Children are encouraged to wear pajamas. - Jewelry must be removed prior to entering the operating room. Rings and piercings that are not removed may be cut off. - The hospital will not accept responsibility for valuables. - Please leave all valuables, including medications, at home the day of surgery. If you are going home after surgery, a licensed meals on wheels driver must drive you home. - NO public transportation without another adult if you receive anesthesia. - We recommend that an adult stay with you for 24 hours following discharge. - We also recommend that you do not drive, make important decision, drink alcoholic beverages, or take any drugs that were not prescribed by your health care provider for at least 24 hours after your discharge time. Follow any additional instructions given to you from your surgeon. If you or anyone in your household have experienced Covid symptoms in the past week, please notify your surgeon or the nurse liaison at the phone number below for possible testing. VERBAL AND WRITTEN instructions given to __PATIENT and asked if any additional questions and then verbalized understanding. Patient advised to call surgeon office or pre surgery nurse liaison [phone] if any additional questions.
[2023-05-20 08:38] VITALS: BP 128/83; PULSE 79; RESP 18; TEMP 37.2; O2SAT 98
[2023-09-30 14:17] VITALS: BP 123/70; PULSE 72; RESP 16; TEMP 37.3; O2SAT 100; BMI 34.6
--- NOTE | 2023-09-30 14:34 | PC.NURSE ---
Report to the Outpatient Waiting Room, entrance under the green pavilion located off [facility], at time _06:00AM on 10/27/23 . Planned Procedure Time: ____07:30AM____. Time changes happen often and if your time is changed the preop area will call you the afternoon before. - You and your visitor will be asked to self-screen and do not enter if you have any COVID symptoms. - A mask is optional within the hospital at this time. Patients may have clear liquids (water, carbonated beverages, clear teas, apple juice) until 3 hours prior to surgery with a maximum of 20 ounces. - No food from midnight until time of surgery Take the following medications with a SIP of water the morning of surgery: _METOPROLOL DO NOT STOP ANY OF YOUR OTHER PRESCRIPTION MEDICATIONS PRIOR TO SURGERY ?EXCEPT THE FOLLOWING Medications to discontinue per physician DICLOFENAC, VITAMINS, SUPPLEMENTS, NSAIDS X7 DAYS PER DR. BURDICK Date to take last dose 10/19/23 . STOP YOUR TIRZEPATIDE FOR 10 DAYS PRIOR, LAST DOSE WILL BE 10/16/23. Please no make-up, nail lao, hairspray, perfume, deodorant, or body powder the day of surgery. No jewelry (including any body piercings) or valuables the day of surgery, leave them at home. Please take a shower or bath the night before, or the morning of, surgery with an antibacterial soap. Wear comfortable, loose fitting clothing. - Jewelry must be removed prior to entering the operating room. Rings and piercings that are not removed may be cut off. - The hospital will not accept responsibility for valuables. - Please leave all valuables, including medications, at home the day of surgery. If you are going home after surgery, a licensed tilt tray driver must drive you home. - NO public transportation without another adult if you receive anesthesia. - We recommend that an adult stay with you for 24 hours following discharge. - We also recommend that you do not drive, make important decision, drink alcoholic beverages, or take any drugs that were not prescribed by your health care provider for at least 24 hours after your discharge time. Follow any additional instructions given to you from your surgeon. If you or anyone in your household have experienced Covid symptoms in the past week, please notify your surgeon or the nurse liaison at the phone number below for possible testing. Telephone instructions given to ____PATIENT and asked if any additional questions and then verbalized understanding. Patient advised to call surgeon office or pre surgery nurse liaison [phone] if any additional questions.
[2023-10-27] VITALS (13 sets, daily range): BP systolic 103–120; BP diastolic 59–71; PULSE 69–88; RESP 14–20; TEMP 36.3–36.9; O2SAT 92–100
--- NOTE | ~2023-10-27 | XR_ITS ---
EXAMINATION: [id number] DATE: 10/27/2023 10:21 INDICATION: Right knee arthroplasty. Postop. TECHNIQUE: 2 views of right knee were obtained. COMPARISON: Right knee radiographs 03/02/2023 FINDINGS: There is a total right knee arthroplasty in near-anatomic alignment with patellar resurfaci ng. No fracture. There are screws from anterior cruciate ligament reconstruction. There is gas in the knee joint and soft tissues, consistent with recent surgery. IMPRESSION: 1. Total right knee arthroplasty in near-anatomic alignment. Reviewed, dictated and finalized at location A.
[2023-10-27] MEDS: LACTATED RINGERS 1,000 ML 30 ML IV CONT ×2 (07:00→09:53)
--- NOTE | 2023-10-27 07:07 | WPDHPUPDATE1 ---
History and Physical Update Update Date/Time: 10/27/23 07:07 History and Physical has been reviewed, including an updated exam of the patient. There are NO changes in the patient's condition. Risks, benefits, and alternatives have been discussed and questions answered. Patient agrees to proceed with procedure.
--- NOTE | 2023-10-27 07:07 | WPDANESEPPF ---
Anes - Initial Pre Proc Eval Procedure: Operation Date: 10/27/23 07:30 Proposed Procedures p Right Total Knee Arthroplasty - Michael Ty MD Date/Time: 10/27/23 07:07 Surgeon: Michael Ty MD Pre Op Diagnosis: primary oa right knee Patient Data Age: 52 Gender: F Height: 1.69 m Weight: 98.7 kg Last Vital Signs Temp 37.3 C 09/30/23 14:17 Pulse 72 09/30/23 14:17 Resp 16 09/30/23 14:17 BP 123/70 09/30/23 14:17 Pulse Ox 100 09/30/23 14:17 O2 Del Method Room Air 09/30/23 14:17 Allergies Allergy/AdvReac Type Severity Reaction Status Date / Time Penicillins Allergy Intermediate hives Verified 10/27/23 06:58 Home Medications Medication Instructions Recorded Confirmed Type solifenacin 10 mg tablet 10 mg PO DAILY #90 tabs 09/16/22 09/30/23 Rx amlodipine 5 mg-valsartan 160 mg 1 tablet PO DAILY #90 tabs 05/06/23 10/27/23 Rx tablet hydrochlorothiazide 12.5 mg tablet See Rx Instructions .Route 05/06/23 09/30/23 Rx .COMPLEX #90 tabs metoprolol succinate 50 mg See Rx Instructions .Route 05/06/23 10/27/23 Rx tablet,extended release 24 hr .COMPLEX #90 tabs vit A 7,160 unit-vit C 113 mg-vit 1 tablet PO DAILY 05/20/23 10/27/23 History E 100 [id number] tablet (EyeProtect) diclofenac sodium 75 mg See Rx Instructions .Route 08/11/23 10/27/23 Rx tablet,delayed release .COMPLEX #60 tabs tirzepatide (weight loss) 10 10 mg (0.5 mL) subcut WEEKLY #2 mL 09/21/23 10/27/23 Rx mg/0.5 mL subcutaneous pen injector (Zepbound) multivitamin 1 tablet PO DAILY 09/30/23 10/27/23 History Patient hx anesthesia problems: none Family hx anesthesia problems: none Results Review: All pre-operative results and documents have been reviewed as part of the pre-operative evaluation. [facility] Past Medical History Medical History Benign reactive hypertension OAB (overactive bladder) Obesity Surgical History Surgical History History of anterior cruciate ligament surgery History of bunionectomy of right great toe History of section History of tubal ligation Family History Family History Father Diabetes mellitus Other Family history of cardiovascular disease Family history of kidney disease Hypertension Social History Social History Social History: Smoking status: Never smoker Second hand tobacco smoke exposure: No Additional smoking assessment comments: DENIES ANY FORM OF TOBACCO USE Alcohol intake: current Drinks per week: 2 Substance use: never Substance use type: does not use Do You Feel Safe in your Home?: Yes Lack of Transportation: No Lack of Food: Never True Current Housing: I Have Housing Concerned About Future Housing: No Difficulty Paying Gas/Electric Bills: No Difficulty Paying for Meds: No Currently Unemployed: No Education: Master's Degree or Higher Difficulty w/ Childcare or Family Care: No Living arrangements: alone Occupation/Education: occupation Additional occupation/education comments: [employer] Gender identity (if verbalized by the patient): Female Sexual Orientation (if Verbalized by the Patient): Straight or Heterosexual Spiritual care concerns: No Anes - Eval Final PreProcedure Day of Procedure 10/27/23 07:07 Patient weight: obese Heart: regular rate and rhythm Lungs: clear to auscultation Airway: Mallampati scale class II Neurological: alert and oriented Last oral intake: >/= 8 hours ASA classification: III Emergent: no Anesthetic plan: proceed Anesthesia type and monitoring: general LMA and standard monitoring Results Review: All pre-operative results and documents have been reviewed as part of the pre-operative
[2023-10-27] MEDS: TRANEXAMIC ACID 1,000MG/ISO100 1,000 MG/100 ML BAG 200 MG IVPB (07:15)
[2023-10-27] MEDS: ACETAMINOPHEN 500 MG TABLET 1000 MG PO (07:15)
[2023-10-27] MEDS: ceFAZolin 2 GM/D5W 50 ML 2 GM/50 ML BAG IVPB ×3 (07:32→23:18)
[2023-10-27] MEDS: SODIUM CHLORIDE 0.9% IV 37.7 ML, MORPHINE SULFATE INJ (*CRX) 2 MG, ROPivacaine HCL 1% 2... INFILTRATE (07:53)
--- NOTE | 2023-10-27 07:59 | WPDANESPNB ---
Anes - Peripheral Nerve Block Date/Time: 10/27/23 07:59 I have discussed with the patient/family/POA the placement of a peripheral nerve block for post-operative pain management, including associated risks, benefits, complications, and side effects. Alternative methods of post-operative analgesia were detailed. Questions were solicited and answers provided to the satisfaction of the patient/family/POA. Time-Out: A pre-procedural Time-Out was completed immediately before starting the procedure and confirmed: Patient Identification, Site, Procedure, Patient Position and the Availability of Requisite Equipment. Clinical Indications: Acute post-operative pain management requested by the operative surgeon. Nerve Block Insertion Note Anes-nerve block: adductor canal right Patient position: supine Skin prep: chlorhexidine Needle: 22 gauge, stimulating, insulated echogenic needle. Needle length: 80 mm Technique: ultrasound Injectate: bupivacaine 0.5% with epi 5 mcg/ml (30cc - no epi) Observations: tolerated well Complications: none Procedure start time:: 724 Procedure end time:: 721
--- NOTE | 2023-10-27 08:00 | SUR.OPER ---
T&S CONFIRMATION TO [facility] IN BLOOD BANK PER PCT DORIAN 08:01.
[2023-10-27] MEDS: GENTAMICIN BONE CEMENT REFOBACIN 1 EACH TOPICAL (08:46)
[2023-10-27] MEDS: TRANEXAMIC ACID 1,000 MG/10 ML AMPUL 1000 MG IV PUSH (09:20)
--- NOTE | 2023-10-27 10:20 | W.PM.PROC2 ---
Procedure Note - Detailed Date of Procedure 10/27/23 Pre-op Diagnosis Degenerative arthritis right knee. Post-op Diagnosis Same Procedure Performed Total knee arthroplasty, right Surgeon Michael Ty MD Engineering Coordinator Rachel Brady PA-C Anesthesia General and Regional (subsartorial block) Indications Severe degenerative changes. History of ACL reconstruction. Retained interference screws. Findings Excellent bone quality. Significant scar tissue. A slight lateral release required. PCL intact. Low profile tibia used to avoid tibial hardware. Description of Procedure The patient was brought to the operating room. A general anesthetic was administered. The leg was prepped and draped in the usual sterile fashion. The limb was elevated and the tourniquet inflated to 300 mmHg during initial exposure, and cementation. A longitudinal incision was created along the medial border of the patella and patellar tendon, and a trivector approach to the knee was performed. No medial release was taken. The knee was then flexed. The osteophytes were carefully removed. The intramedullary guide was placed in the femoral canal. The distal femoral resection was then taken with the oscillating saw. The collateral ligaments were carefully protected. The tibia was carefully exposed. The jig was applied, and the proximal tibia was resected according to preoperative plan. The knee was balanced in extension. Appropriate releases were taken where needed. The anterior cruciate ligament and meniscal remnants were removed. The posterior cruciate ligament was preserved. The patella was measured. Patellar resection was carried out with the oscillating saw. The lug holes drilled. The femur was sized and rotation assessed using a combination of gap balancing, posterior referencing, and the AP axis. The 4 in 1 cutting block was used to finish the femoral cuts after equal gaps were assured. The osteophytes were carefully removed from the back of the knee. The knee was copiously irrigated with antibiotic solution periodically throughout the procedure. The meniscal remnants were removed. The spacer block was used to confirm equal flexion and extension gaps. Slight lateral release required at the ITB band and perforations created at the LCL. The tibia was sized and broached. The bony surfaces were prepared for cementing with pulsatile lavage. The real tibia was cemented into position. The femur was press-fit. The patella was press-fit. Excess cement was carefully removed. Patellar tracking was carefully assessed. Dilute sterile Betadine soak performed for three minutes. Copious irrigation then performed. The wound was closed with #1 Vicryl suture, #2, 2-0, and 3-0 barbed suture, followed by Steri-Strips. A sterile bulky dressing was applied. Meticulous hemostasis was maintained throughout the procedure, and the bipolar cautery device was used. The pain relieving mixture was injected into the periarticular tissues during the procedure. There were no complications. The patient was extubated and brought to the recovery room in stable condition after the application of sterile dressing with Sarmad bandage. Implants Personal Style Finder Triathlon knee system, low profile cemented tibia size 4, press-fit cruciate retaining femoral component size 4, 12 mm cruciate stabilizing polyethylene insert. 35mm asymmetric tritanium patella component. Estimated Blood Loss 100 Drains No Pathology None sent Complications No immediate complications Condition Stable Disposition PACU [facility] Billing Surgery - Charge Forward: Surgery Billing
--- NOTE | 2023-10-27 11:25 | ADMGEN ---
This patient, Dana Castaneda, was admitted to Medical Room 258-01. Patient/family oriented to hospital policies and general routines including ID bracelet, bed and alarms, visiting hours, pain management, procedures, bathroom and other care routines, personal items, smoking policy, room service/diet, and visiting hours. Information on how to activate the Rapid Response Team has been discussed. Patient/Family are encouraged to report perceived risks to care and to ask questions if they do not understand what they are told or what they should do.
[2023-10-27] MEDS: ACETAMINOPHEN 325 MG TABLET 650 MG PO ×3 (12:17→23:18)
[2023-10-27] MEDS: oxyCODONE/ACETAMINOPHEN (*CRX) 10-325 MG TABLET 1 TAB PO ×2 (14:13→20:31)
[2023-10-27] MEDS: ONDANSETRON INJ 4 MG/2 ML VIAL IV PUSH ×2 (14:13→18:09)
--- NOTE | 2023-10-27 16:04 | PCPTNOTE ---
On 10/27/23, the student, [Samreen Villareal], provided care and completed [facility] documentation on this patient. I have reviewed the student's documentation and agree with the findings.
[2023-10-27] MEDS: predniSONE 5 MG TABLET PO (16:37)
[2023-10-27] MEDS: SENNA/DOCUSATE SODIUM TABLET 2 TAB PO (16:37)
[2023-10-27] MEDS: CYCLOBENZAPRINE HCL 10 MG TABLET PO (16:37)
[2023-10-27] MEDS: ASPIRIN 81 MG ENTERIC TABLET PO (20:31)
[2023-10-27] MEDS: FAMOTIDINE 20 MG TABLET PO (20:31)
[2023-10-28] MEDS: oxyCODONE/ACETAMINOPHEN (*CRX) 10-325 MG TABLET 1 TAB PO (02:38)
[2023-10-28 03:53] LABS: Basophils Percent Auto 0.3 % (0.2-1.2); Eosinophils Percent Auto 0.3 % (0-4.4); Hematocrit 34.9 % (37.0-47.0); Hemoglobin 11.2 g/dL (12.0-15.0); Immature Granulocyte Absolute 0.07 K/mm3 (0.00-0.031); Immature Granulocyte Percent A 0.5 % (0-0.5); Lymphocytes Absolute Auto 1.88 K/mm3 (0.9-3.2); Lymphocytes Percent Auto 12.5 % (18.3-44.2); Mean Corpuscular HGB Conc 32.1 g/dl (32-36); Mean Corpuscular Hemoglobin 29.3 pg (26-34); Mean Corpuscular Volume 91.4 fl (80-100); Mean Platelet Volume 9.6 fl (7.4-10.4); Monocytes Absolute Auto 1.1 K/mm3 (0.1-0.6); Monocytes Percent Auto 7.5 % (2.6-8.5); Neutrophils Absolute Auto 11.9 K/mm3 (1.3-6.7); Neutrophils Percent Auto 78.9 % (45.5-73.1); Platelet Count Result 371 k/mm3 (150-375); Red Blood Count 3.82 M/mm3 (4.2-5.4); Red Cell Distribution Width 13.6 % (11.5-14.5)
[2023-10-28 04:08] LABS: Anion Gap 8 mmol/L (4-12); Blood Urea Nitrogen 12 mg/dL (7-17); Calcium 8.4 mg/dL (8.4-10.2); Carbon Dioxide 27 mmol/L (22-30); Chloride 102 mmol/L (98-107); Estimated CRCL calculation 128 ml/min; Estimated Glomerular Filt Rate > 60; Glucose 112 mg/dL (65-110); Potassium 3.4 mmol/L (3.4-5.0); Sodium 137 mmol/L (137-145)
[2023-10-28] MEDS: ACETAMINOPHEN 325 MG TABLET 650 MG PO ×2 (04:59→11:12)
[2023-10-28 06:00] VITALS: BP 103/60; PULSE 73; RESP 14; TEMP 36.7; O2SAT 97
[2023-10-28 08:04] VITALS: BP 112/69
[2023-10-28] MEDS: amLODIPine BESYLATE 5 MG TABLET PO (08:04)
[2023-10-28] MEDS: ceFAZolin 2 GM/D5W 50 ML 2 GM/50 ML BAG IVPB (08:04)
[2023-10-28 08:05] VITALS: PULSE 73
[2023-10-28] MEDS: FAMOTIDINE 20 MG TABLET PO (08:05)
[2023-10-28] MEDS: SENNA/DOCUSATE SODIUM TABLET 2 TAB PO (08:05)
[2023-10-28] MEDS: DICLOFENAC SOD 75 MG TABLET.EC PO (08:05)
[2023-10-28] MEDS: polyethylene glycoL 3350 17 GM POWD.PACK PO (08:05)
[2023-10-28] MEDS: METOPROLOL SUCCINATE EXT REL 50 MG TABCR PO (08:05)
[2023-10-28] MEDS: ASPIRIN 81 MG ENTERIC TABLET PO (08:05)
[2023-10-28] MEDS: hydroCHLOROthiazide 12.5 MG CAPSULE PO (08:05)
[2023-10-28] MEDS: SOLIFENACIN 5 MG TABLET 10 MG PO (08:06)
[2023-10-28] MEDS: OPTI-GEN TAB 1 TABLET PO (08:06)
[2023-10-28] MEDS: oxyCODONE/ACETAMINOPHEN (*CRX) 5-325 MG TABLET 1 TABLET PO (08:06)
[2023-10-28] MEDS: VALSARTAN 160 MG TABLET PO (08:06)
--- NOTE | 2023-10-28 08:19 | PM.DS ---
DS: Admitting Diagnosis Discharge Date 10/28/23 Admitting Diagnosis Knee arthritis. DS: Discharge Diagnosis Discharge Diagnosis (1) Status post total right knee replacement: Code(s): Z96.651 - Presence of right artificial knee joint Status: Acute Assessment and Plan: Postop day 1: Right total knee arthroplasty. Patient tolerated procedure well. No complications. Pain manageable with pain medication. No numbness or tingling. We had a lengthy discussion regarding postoperative wound care, limitations, expectations, and exercises. Patient shows good understanding. She has had initial physical therapy and is tolerating it well. DVT prophylaxis: 81 mg baby aspirin b.i.d. for 14 days. Pain medication: Percocet. Patient has followup appointment with Dr. Ty in 3 weeks. DS: Summary Hospital Course Reason for hospitalization: Total knee arthroplasty Hospital Course: Patient tolerated procedure well. Has had initial PT/OT. No complications. Pain well managed. Status at Discharge Functional status at discharge: uses cane/walker Overall status at discharge: patient is progressing back to baseline Time Spent with Patient Time attestation: Total time spent providing and/or coordinating discharge services: Exam Narrative: Overweight 52 y/o female. Resting comfortably in chair. No acute distress. A&O x3. Wearing compression socks bilaterally. Dressing intact with no drainage. Moderate swelling. Mild ecchymosis. No erythema. No hematoma. Good early range of motion. Calf nontender. Neurologic status intact. No varicosities. Distal pulses palpable. DS: Data Data Completed and Pending Labs on day of discharge: Labs from last 24 hours 10/28/23 03:39 WBC 15.0 H RBC 3.82 L Hgb 11.2 L Hct 34.9 L MCV 91.4 MCH 29.3 MCHC 32.1 RDW 13.6 Plt Count 371 MPV 9.6 Immature Gran % (Auto) 0.5 Neut % (Auto) 78.9 H Lymph % (Auto) 12.5 L [place] % (Auto) 7.5 Eos % (Auto) 0.3 Baso % (Auto) 0.3 Lymph # (Auto) 1.88 [place] # (Auto) 1.1 H Eos # (Auto) 0.0 Baso # (Auto) 0.0 Abs Immat Gran (auto) 0.07 H Absolute Neuts (auto) 11.9 H Absolute Nucleated RBC 0.000 Nucleated RBC % 0.0 Sodium 137 Potassium 3.4 Chloride 102 Carbon Dioxide 27 Anion Gap 8 BUN 12 D Creatinine 0.50 L Estim Creat Clear Calc 128 Estimated GFR > 60 Glucose 112 H Calcium 8.4 Discharge Plan Discharge Patient Disposition: Home, Self-Care Discharge Instructions: See green instruction sheets Stand Alone Forms: General Discharge Instructions Follow-up/Referrals: Rachel Brady PA [Physician Ribbon [facility]] - Discharge Medications: New aspirin 81 mg tablet,delayed release (DR/EC) 81 mg PO BID 14 Days Qty: 28 0RF prednisone 5 mg tablet 5 mg PO DAILY 21 Days Qty: 21 0RF oxycodone-acetaminophen 5-325 mg tablet 1 - 2 tablet PO Q4-6H MDD 6 PRN (Reason: pain) Qty: 30 0RF Continued solifenacin 10 mg tablet 10 mg PO DAILY Qty: 90 3RF Zepbound 10 mg/0.5 mL pen injector 10 mg subcut WEEKLY Qty: 2 3RF Rx Instructions: WEEKLY ON THURSDAY EyeProtect [id number],160-113-100 [id number] Tablet 1 tablet PO DAILY multivitamin Tablet 1 tablet PO DAILY metoprolol succinate 50 mg tablet extended release 24 hr See Rx Instructions .ROUTE .COMPLEX Qty: 90 1RF Dose Instruction: Take 1 tablet by mouth once daily Rx Instructions: Take 1 tablet by mouth once daily IN AM hydrochlorothiazide 12.5 mg tablet See Rx Instructions .ROUTE .COMPLEX Qty: 90 1RF Dose Instruction: Take 1 tablet by mouth once daily Rx Instructions: Take 1 tablet by mouth once daily amlodipine-valsartan 5-160 mg tablet 1 tablet PO DAILY Qty: 90 1RF Rx Instructions: AM diclofenac sodium 75 mg tablet,delayed release (DR/EC) See Rx Instructions .ROUTE .COMPLEX Qty: 60 0RF Dose Instruction: Take 1 tablet by
--- NOTE | 2023-10-28 08:33 | P.PNAN_ITS ---
Anes - Prog Note Post-Op Date/Time: 10/28/23 08:33 Cardiovascular status: normal Respiratory status: normal Airway patency: baseline Mental status: baseline Post-Op hydration status: normal Vital Signs: Last Vital Signs Temp 36.7 C 10/28/23 06:00 Pulse 73 10/28/23 08:05 Resp 14 10/28/23 06:00 BP 112/69 10/28/23 08:04 Pulse Ox 97 10/28/23 06:00 O2 Del Method Room Air 10/27/23 13:45 O2 Flow Rate 6 10/27/23 10:20 Pain Score (VAS): 07/07 I/O: Intake & Output 10/27/23 10/28/23 10/28/23 23:59 07:59 15:59 Intake Total 460 Balance 460 Laboratory Tests 10/28/23 03:39 10/28/23 03:39 10/28/23 03:39 WBC 15.0 H RBC 3.82 L Hgb 11.2 L Hct 34.9 L MCV 91.4 MCH 29.3 MCHC 32.1 RDW 13.6 Plt Count 371 MPV 9.6 Immature Gran % (Auto) 0.5 Neut % (Auto) 78.9 H Lymph % (Auto) 12.[address] [place] % (Auto) 7.5 Eos % (Auto) 0.3 Baso % (Auto) 0.3 Lymph # (Auto) 1.88 [place] # (Auto) 1.1 H Eos # (Auto) 0.0 Baso # (Auto) 0.0 Abs Immat Gran (auto) 0.07 H Absolute Neuts (auto) 11.9 H Absolute Nucleated RBC 0.000 Nucleated RBC % 0.0 Sodium 137 Potassium 3.4 Chloride 102 Carbon Dioxide 27 Anion Gap 8 BUN 12 D Creatinine 0.50 L Estim Creat Clear Calc 128 Estimated GFR > 60 Glucose 112 H Calcium 8.4 Post-procedural complaints: none Patient Feedback: Patient satisfied with anesthetic care.
[2023-10-28] MEDS: ONDANSETRON INJ 4 MG/2 ML VIAL IV PUSH (08:59)
[2023-10-28 10:00] VITALS: BP 116/62; PULSE 75; RESP 18; TEMP 37.2; O2SAT 98
== END 2023-10-28 11:25 | disposition home or self-care (01) ==
LOC: ANHSURGERY 10:09 → ANH2MED 11:14
PROVIDERS: Physician Assistant Surgical; PCP Family Medicine; Visit Provider Orthopaedic Surgery
PROC: (CPT 27447; principal; 2023-10-27 07:30)
DX: M17.11 Unilateral primary osteoarthritis, right knee (principal); G89.18 Other acute postprocedural pain; I10 Essential (primary) hypertension; G47.33 Obstructive sleep apnea (adult) (pediatric); E66.9 Obesity, unspecified; Z68.33 Body mass index [BMI] 33.0-33.9, adult
CPT/HCPCS: 27447; 64447; 36415; 73560; 80048; 85025; 86850; 86900; 86901; 97110; 97116; 97161; 97165; 97530; 97535; A9270; C1713; C1776; J0171; J0690; J1100; J1170; J1885; J2250; J2270; J2405; J2704; J2795; J7120; J7512

== ENCOUNTER 2023-12-01 01:11 | Day surgery (SDC) | payer OTHER, SELFPAY ==
[2023-11-26 14:18] VITALS: BMI 35.0
--- NOTE | 2023-11-26 14:49 | PC.NURSE ---
Report to the Outpatient Waiting Room, entrance under the green pavilion located off [facility], at time _1130AM___ on date _12/01/23 . Planned Procedure Time: _1330PM .? Time changes happen often and if your time is changed the preop area will call you the afternoon before. - You and your visitor will be asked to self-screen and do not enter if you have any COVID symptoms. Please call surgeon if you need to reschedule. - A mask is optional within the hospital at this time. Patients may have clear liquids (water, carbonated beverages, clear teas, apple juice) until 3 hours prior to surgery with a maximum of 20 ounces. - No food from midnight until time of surgery and no smoking - Take only the following medications with a SIP of water on the morning of surgery: ____METOPROLOL DO NOT STOP ANY OF YOUR OTHER PRESCRIPTION MEDICATIONS PRIOR TO SURGERY EXCEPT THE FOLLOWING Medications to discontinue per physician ___VITAMINS, SUPPLEMENTS, NSAIDS X7 DAYS 11/26/23 Date to take last dose__CONTINUE TO HOLD TIRZEPATIDE Please no make-up, nail central african, hairspray, perfume, deodorant, or body powder the day of surgery.? No jewelry (including any body piercings) or valuables the day of surgery, leave them at home.? Please take a shower or bath the night before, or the morning of, surgery with an antibacterial soap.? Wear comfortable, loose fitting clothing.? - Jewelry must be removed prior to entering the operating room.? Rings and piercings that are not removed may be cut off. - The hospital will not accept responsibility for valuables.? - Please leave all valuables, including medications, at home the day of surgery. If you are going home after surgery, a licensed local company truck driver must drive you home.? - NO public transportation without another adult if you receive anesthesia. - We recommend that an adult stay with you for 24 hours following discharge. - We also recommend that you do not drive, make important decision, drink alcoholic beverages, or take any drugs that were not prescribed by your health care provider for at least 24 hours after your discharge time. Follow any additional instructions given to you from your surgeon. Telephone instructions given to _MOISES and asked if any additional questions and then verbalized understanding. Patient advised to call surgeon office or pre surgery nurse liaison [phone] if any additional questions.
[2023-12-01] VITALS (8 sets, daily range): BP systolic 107–131; BP diastolic 72–84; PULSE 61–73; RESP 9–20; TEMP 36.6; O2SAT 97–100
[2023-12-01] MEDS: ACETAMINOPHEN 500 MG TABLET 1000 MG PO (11:50)
[2023-12-01] MEDS: LACTATED RINGERS 1,000 ML 30 ML IV CONT (11:55)
[2023-12-01] MEDS: KETOROLAC 15 MG/ML VIAL (*BKC) IV PUSH (12:01)
--- NOTE | 2023-12-01 13:57 | WPDANESEPPF ---
Anes - Initial Pre Proc Eval Procedure: Operation Date: 12/01/23 13:30 Proposed Procedures p Right Total Knee Manipulation - Michael Ty MD Date/Time: 12/01/23 13:57 Surgeon: Michael Ty MD Pre Op Diagnosis: Rt Knee contracture Patient Data Age: 53 Gender: F Height: 1.69 m Weight: 93.6 kg Last Vital Signs Temp 36.6 C 12/01/23 11:58 Pulse 66 12/01/23 11:58 Resp 16 12/01/23 11:58 BP 113/74 12/01/23 11:58 Pulse Ox 99 12/01/23 11:58 O2 Del Method Room Air 12/01/23 11:58 Allergies Allergy/AdvReac Type Severity Reaction Status Date / Time Penicillins Allergy Intermediate hives Verified 12/01/23 11:41 Home Medications Medication Instructions Recorded Confirmed Type vit A 7,160 unit-vit C 113 mg-vit 1 tablet PO DAILY 05/20/23 11/26/23 History E 100 [id number] tablet (EyeProtect) tirzepatide (weight loss) 10 10 mg (0.5 mL) subcut WEEKLY #2 mL 09/21/23 11/26/23 Rx mg/0.5 mL subcutaneous pen injector (Zepbound) multivitamin 1 tablet PO DAILY 09/30/23 11/26/23 History aspirin 81 mg tablet,delayed 81 mg PO BID 14 days #28 tabs 10/27/23 11/26/23 Rx release amlodipine 5 mg-valsartan 160 mg See Rx Instructions .Route 11/12/23 11/26/23 Rx tablet .COMPLEX #90 tabs diclofenac sodium 75 mg See Rx Instructions .Route 11/12/23 11/26/23 Rx tablet,delayed release .COMPLEX #60 tabs hydrochlorothiazide 12.5 mg tablet See Rx Instructions .Route 11/12/23 11/26/23 Rx .COMPLEX #90 tabs metoprolol succinate 50 mg See Rx Instructions .Route 11/12/23 12/01/23 Rx tablet,extended release 24 hr .COMPLEX #90 tabs oxycodone-acetaminophen 5 mg-325 1 - 2 tablet PO Q4-6H PRN pain #30 11/13/23 11/26/23 Rx mg tablet tabs solifenacin 10 mg tablet 10 mg PO DAILY #90 tabs 11/16/23 11/26/23 Rx acetaminophen 500 mg capsule 1,000 mg PO Q6H PRN Pain, Moderate 11/26/23 11/26/23 History Patient hx anesthesia problems: none Family hx anesthesia problems: none Results Review: All pre-operative results and documents have been reviewed as part of the pre-operative evaluation. PMF Past Medical History Medical History Benign reactive hypertension OAB (overactive bladder) Obesity Surgical History Surgical History History of anterior cruciate ligament surgery History of bunionectomy of right great toe History of section History of tubal ligation Family History Family History Father Diabetes mellitus Other Family history of cardiovascular disease Family history of kidney disease Hypertension Social History Social History Social History: Smoking status: Never smoker Second hand tobacco smoke exposure: No Additional smoking assessment comments: DENIES ANY FORM OF TOBACCO USE Alcohol intake: current Drinks per week: 2 Substance use: never Substance use type: does not use Do You Feel Safe in your Home?: Yes Lack of Transportation: No Lack of Food: Never True Current Housing: I Have Housing Concerned About Future Housing: No Difficulty Paying Gas/Electric Bills: No Difficulty Paying for Meds: No Currently Unemployed: No Education: Master's Degree or Higher Difficulty w/ Childcare or Family Care: No Living arrangements: with family Occupation/Education: occupation Additional occupation/education comments: [employer] Gender identity (if verbalized by the patient): Female Sexual Orientation (if Verbalized by the Patient): Straight or Heterosexual Spiritual care concerns: No Anes - Eval Final PreProcedure Day of Procedure 12/01/23 13:57 Patient weight: overweight Heart: regular rate and rhythm Lungs: clear to auscultation Airway: Mallampati scale
--- NOTE | 2023-12-01 14:16 | WPDHPUPDATE1 ---
History and Physical Update Update Date/Time: 12/01/23 14:16 History and Physical has been reviewed, including an updated exam of the patient. There are NO changes in the patient's condition. Risks, benefits, and alternatives have been discussed and questions answered. Patient agrees to proceed with procedure.
[2023-12-01 14:46] LABS: Glucose Point of Care 91 mg/dl (65-105)
[2023-12-01] MEDS: fentaNYL CITRATE INJ (*CRX) 100 MCG/2 ML VIAL 25 MCG IV PUSH ×4 (15:00→15:06)
[2023-12-01] MEDS: oxyCODONE HCL (*CRX) 5 MG TAB IR PO (15:52)
--- NOTE | 2023-12-01 16:12 | W.PM.PROC2 ---
Procedure Note - Detailed Date of Procedure 12/01/23 Pre-op Diagnosis Rt Knee contracture, status post total knee arthroplasty Post-op Diagnosis Same Procedure Performed Manipulation under anesthesia, right knee. Surgeon Michael Ty MD Anesthesia General Findings Initial range of motion 0? to 85?. Final range of motion 0? to 120?. No abnormal findings. Description of Procedure A general anesthetic was administered. The patient was kept on the transport gurney. The knee was gently manipulated into flexion. Soft tissue scar tissue release was felt. There were no complications. Motion was significantly improved. Estimated Blood Loss 0 Drains No Packing No Pathology None sent Complications No immediate complications Condition Stable Disposition PACU [facility] Billing Surgery - Charge Forward: Surgery Billing
== END 2023-12-01 16:39 | disposition home or self-care (01) ==
PROVIDERS: PCP Family Medicine; Visit Provider Orthopaedic Surgery
PROC: (CPT 27570; principal; 2023-12-01 13:30)
DX: M24.561 Contracture, right knee (principal); Z96.651 Presence of right artificial knee joint; I10 Essential (primary) hypertension; N32.81 Overactive bladder; Z79.85 Long-term (current) use of injectable non-insulin antidiabetic drugs; Z79.82 Long term (current) use of aspirin
CPT/HCPCS: 27570; 82948; A9270; J1010; J1100; J1885; J2250; J2405; J2704; J3010; J3301; J7120

== ENCOUNTER 2023-12-04 06:59 | Outpatient (CLI) | payer OTHER, SELFPAY ==
--- NOTE | ~2023-12-04 | MM_ITS ---
EXAMINATION: MM screening danelle BI w radha HISTORY: Screening TECHNIQUE: Craniocaudal and mediolateral oblique 3-D tomosynthesis images were obtained and synthetic 2-D images were generated. CAD analysis was submitted and interpreted. COMPARISON: Comparison to multiple prior studies sequentially, with oldest reviewed study dated 04/16. BREAST PARENCHYMAL COMPOSITION: Not dense: There are scattered areas of fibroglandular density. FINDINGS: There is no evidence of suspicious mass, calcification, or architectural distortion to sugg est malignancy in either breast. There has been no suspicious interval change. IMPRESSION: 1. No mammographic evidence of malignancy. 2. Recommend routine screening mammography in one year. BI-RADS Category 1: Negative Reviewed, dictated and finalized at location B.
== END 2023-12-04 07:00 | disposition home or self-care (01) ==
PROVIDERS: PCP Family Medicine; Visit Provider Nurse Practitioner
DX: Z12.31 Encounter for screening mammogram for malignant neoplasm of breast (principal)
CPT/HCPCS: 77063; 77067

== ENCOUNTER 2023-12-21 09:27 | Outpatient (CLI) | payer OTHER, SELFPAY ==
--- NOTE | ~2023-12-21 | XR_ITS ---
Right Knee Technique: AP, lateral, and sunrise views were obtained. Clinical History: Arthroplasty follow-up Findings: No fracture or dislocation is seen. Right knee arthroplasty in place. No complication is ev ident. Soft tissues are unremarkable. No joint effusion is seen. Impression: No acute abnormality. Right knee arthroplasty in place. Reviewed, dictated and finalized at location . Impression: No acute abnormality. Right knee arthroplasty in place.
== END 2023-12-21 09:28 | disposition home or self-care (01) ==
LOC: ANHIMG 09:30
PROVIDERS: PCP Family Medicine; Visit Provider Orthopaedic Surgery
DX: Z96.651 Presence of right artificial knee joint (principal)
CPT/HCPCS: 73562

== ENCOUNTER 2024-02-08 15:21 | Outpatient (CLI) | payer OTHER, SELFPAY ==
[2024-02-08 15:57] LABS: Basophils Absolute Auto 0.1 K/mm3 (0.0-0.1); Basophils Percent Auto 0.9 % (0.2-1.2); Eosinophils Absolute Auto 0.3 K/mm3 (0-0.3); Eosinophils Percent Auto 3.8 % (0-4.4); Hematocrit 41.3 % (37.0-47.0); Hemoglobin 13.7 g/dL (12.0-15.0); Immature Granulocyte Absolute 0.02 K/mm3 (0.00-0.031); Immature Granulocyte Percent A 0.3 % (0-0.5); Lymphocytes Absolute Auto 2.67 K/mm3 (0.9-3.2); Mean Corpuscular HGB Conc 33.2 g/dl (32-36); Mean Corpuscular Volume 90.4 fl (80-100); Mean Platelet Volume 9.7 fl (7.4-10.4); Monocytes Absolute Auto 0.5 K/mm3 (0.1-0.6); Monocytes Percent Auto 6.1 % (2.6-8.5); Neutrophils Absolute Auto 4.3 K/mm3 (1.3-6.7); Neutrophils Percent Auto 54.9 % (45.5-73.1); Platelet Count Result 365 k/mm3 (150-375); Red Blood Count 4.57 M/mm3 (4.2-5.4); Red Cell Distribution Width 13.2 % (11.5-14.5); White Blood Count 7.9 K/mm3 (4.5-10.0)
[2024-02-08 16:16] LABS: Urine Cotinine NEGATIVE
[2024-02-08 17:11] LABS: MRSA (PCR) NOT DETECTED (NOT DETECTE)
== END 2024-02-08 15:22 | disposition home or self-care (01) ==
PROVIDERS: PCP Family Medicine; Visit Provider Orthopaedic Surgery
DX: M17.12 Unilateral primary osteoarthritis, left knee (principal); Z01.818 Encounter for other preprocedural examination
CPT/HCPCS: 80307; 85025; 86850; 86900; 86901; 87641

== ENCOUNTER 2024-02-11 01:34 | Day surgery (SDC) | payer OTHER, SELFPAY ==
[2024-02-05 13:24] VITALS: BMI 30.4
--- NOTE | 2024-02-05 13:46 | PC.NURSE ---
Report to the Outpatient Waiting Room, entrance under the green pavilion located off [facility], at time ___11:30AM____ on date ___02/11/24____. Planned Procedure Time: ___1:30PM .? Time changes happen often and if your time is changed the preop area will call you the afternoon before. - You and your visitor will be asked to self-screen and do not enter if you have any COVID symptoms. Please call surgeon if you need to reschedule. - A mask is optional within the hospital at this time. Patients may have clear liquids (water, carbonated beverages, clear teas, apple juice) until 3 hours prior to surgery with a maximum of 20 ounces. - No food from midnight until time of surgery and no smoking. Take only the following medications with a SIP of water on the morning of surgery: METOPROLOL DO NOT STOP ANY OF YOUR OTHER PRESCRIPTION MEDICATIONS PRIOR TO SURGERY EXCEPT THE FOLLOWING Medications to discontinue per physician __HOLD DICLOFENAC(ALL NSAIDS) & ALL VITAMINS/SUPPLEMENTS 7 DAYS PRE-OP PER DR BURDICK- LAST DOSE 02/03/24._ HOLD ZEPBOUND 10 DAYS PRE-OP PER ANESTHESIA- LAST DOSE 02/01/24. Please no make-up, nail malawian, hairspray, perfume, deodorant, or body powder the day of surgery.? No jewelry (including any body piercings) or valuables the day of surgery, leave them at home.? Please take a shower or bath the night before, or the morning of, surgery with an antibacterial soap.? Wear comfortable, loose fitting clothing.? - Jewelry must be removed prior to entering the operating room.? Rings and piercings that are not removed may be cut off. - The hospital will not accept responsibility for valuables.? - Please leave all valuables, including medications, at home the day of surgery. If you are going home after surgery, a licensed fleet driver must drive you home.? - NO public transportation without another adult if you receive anesthesia. - We recommend that an adult stay with you for 24 hours following discharge. - We also recommend that you do not drive, make important decision, drink alcoholic beverages, or take any drugs that were not prescribed by your health care provider for at least 24 hours after your discharge time. Follow any additional instructions given to you from your surgeon. Telephone instructions given to ____PATIENT and asked if any additional questions and then verbalized understanding. Patient advised to call surgeon office or pre surgery nurse liaison [phone] if any additional questions.
[2024-02-11] VITALS (12 sets, daily range): BP systolic 118–129; BP diastolic 70–80; PULSE 69–82; RESP 12–18; TEMP 36.2–36.8; O2SAT 94–100
--- NOTE | ~2024-02-11 | XR_ITS ---
EXAMINATION: [id number] DATE: 02/11/2024 15:45 INDICATION: Left knee arthroplasty. Postop. TECHNIQUE: 2 views of left knee were obtained. COMPARISON: None. FINDINGS: There is a total left knee arthroplasty with patellar resurfacing in near-anatomic alignmen t. No fracture. There is gas in the knee joint and soft tissues, consistent with recent surgery. IMPRESSION: 1. Total left knee arthroplasty in near-anatomic alignment. Reviewed, dictated and finalized at location A. CH BURNISHER
[2024-02-11] MEDS: LACTATED RINGERS 1,000 ML 30 ML IV CONT ×2 (12:00→15:30)
[2024-02-11] MEDS: TRANEXAMIC ACID 1,000MG/ISO100 1,000 MG/100 ML BAG 200 MG IVPB ×2 (12:00→15:08)
[2024-02-11] MEDS: ACETAMINOPHEN 500 MG TABLET 1000 MG PO (12:00)
--- NOTE | 2024-02-11 12:59 | WPDANESEPPF ---
Anes - Initial Pre Proc Eval Procedure: Operation Date: 02/11/24 13:30 Proposed Procedures p Left Total Knee Arthroplasty - Michael Ty MD Date/Time: 02/11/24 12:59 Surgeon: Michael Ty MD Pre Op Diagnosis: primary oa left knee Patient Data Age: 53 Gender: F Height: 1.7 m Weight: 88 kg Allergies Allergy/AdvReac Type Severity Reaction Status Date / Time Penicillins Allergy Intermediate hives Verified 02/05/24 13:19 Home Medications Medication Instructions Recorded Confirmed Type vit A 7,160 unit-vit C 113 mg-vit 1 tablet PO DAILY 05/20/23 02/05/24 History E 100 [id number] tablet (EyeProtect) multivitamin 1 tablet PO DAILY 09/30/23 02/05/24 History amlodipine 5 mg-valsartan 160 mg See Rx Instructions .Route 11/12/23 02/05/24 Rx tablet .COMPLEX #90 tabs diclofenac sodium 75 mg See Rx Instructions .Route 11/12/23 02/05/24 Rx tablet,delayed release .COMPLEX #60 tabs hydrochlorothiazide 12.5 mg tablet See Rx Instructions .Route 11/12/23 02/05/24 Rx .COMPLEX #90 tabs metoprolol succinate 50 mg See Rx Instructions .Route 11/12/23 02/05/24 Rx tablet,extended release 24 hr .COMPLEX #90 tabs solifenacin 10 mg tablet 10 mg PO DAILY #90 tabs 11/16/23 02/05/24 Rx acetaminophen 500 mg capsule 1,000 mg PO Q6H PRN Pain, Moderate 11/26/23 02/05/24 History tirzepatide (weight loss) 12.5 12.5 mg (0.5 mL) subcut WEEKLY #2 12/29/23 02/05/24 Rx mg/0.5 mL subcutaneous pen injector mL aspirin 81 mg tablet,delayed 81 mg PO BID 14 days #28 tabs 02/11/24 Rx release oxycodone-acetaminophen 5 mg-325 1 - 2 tablet PO Q4-6H PRN pain 7 02/11/24 Rx mg tablet days #30 tabs prednisone 5 mg tablet 5 mg PO DAILY 3 weeks #21 tabs 02/11/24 Rx Patient hx anesthesia problems: none Family hx anesthesia problems: none Results Review: All pre-operative results and documents have been reviewed as part of the pre-operative evaluation. [facility] Past Medical History Medical History Benign reactive hypertension OAB (overactive bladder) Obesity Surgical History Surgical History History of anterior cruciate ligament surgery History of bunionectomy of right great toe History of section History of tubal ligation Family History Family History Father Diabetes mellitus Other Family history of cardiovascular disease Family history of kidney disease Hypertension Social History Social History Social History: Smoking status: Never smoker Second hand tobacco smoke exposure: No Additional smoking assessment comments: DENIES ANY FORM OF TOBACCO USE Alcohol intake: current Drinks per week: 2 Substance use: never Substance use type: does not use Do You Feel Safe in your Home?: Yes Lack of Transportation: No Lack of Food: Never True Current Housing: I Have Housing Concerned About Future Housing: No Difficulty Paying Gas/Electric Bills: No Difficulty Paying for Meds: No Currently Unemployed: No Education: Master's Degree or Higher Difficulty w/ Childcare or Family Care: No Living arrangements: alone Occupation/Education: occupation Additional occupation/education comments: [employer] Gender identity (if verbalized by the patient): Female Sexual Orientation (if Verbalized by the Patient): Straight or Heterosexual Spiritual care concerns: No Anes - Eval Final PreProcedure Day of Procedure 02/11/24 12:59 Patient weight: obese Heart: regular rate and rhythm Lungs: clear to auscultation Airway: Mallampati scale class 1 Neurological: alert and oriented Last oral intake: >/= 8 hours ASA classification: III Emergent: no Anesthetic plan: proceed Anesthesia type and monitoring: general LMA and standard monitoring Results Review: All pre-operative results and documents have been reviewed as part of the pre-operative evaluation. HTN, BMI 30. Pt has been off her GLP1 for 11 days. Informed Consent: The patient's anesthetic plan and its attendant risks and benefits were discussed with the patient/family/POA. Questions were solicited and answers provided to the satisfaction of the patient/family/POA.
--- NOTE | 2024-02-11 13:07 | WPDHPUPDATE1 ---
History and Physical Update Update Date/Time: 02/11/24 13:07 History and Physical has been reviewed, including an updated exam of the patient. There are NO changes in the patient's condition. Risks, benefits, and alternatives have been discussed and questions answered. Patient agrees to proceed with procedure.
[2024-02-11] MEDS: ceFAZolin 2 GM/D5W 50 ML 2 GM/50 ML BAG IVPB ×2 (13:27→20:22)
[2024-02-11] MEDS: SODIUM CHLORIDE 0.9% IV 37.7 ML, MORPHINE SULFATE INJ (*CRX) 2 MG, ROPivacaine HCL 1% 2... INFILTRATE (14:07)
[2024-02-11] MEDS: GENTAMICIN BONE CEMENT REFOBACIN 1 EACH TOPICAL (14:08)
--- NOTE | 2024-02-11 15:49 | W.PM.PROC2 ---
Procedure Note - Detailed Date of Procedure 02/11/24 Pre-op Diagnosis Left knee degenerative arthritis. Post-op Diagnosis Same Procedure Performed Calipered, kinematically aligned total knee replacement left knee. Surgeon Michael Ty MD Neuropsychology Service Director Rachel Brady PA-C Anesthesia General Findings According to the calipered kinematic alignment principles, the knee was balanced by the following verification checks incorporating 6 caliper measurements, using an insert goniometer to select the insert thickness, and adjusting the tibial resection following the kinematic alignment algorithm (see figure 160.10 published in [employer] chapter on kinematic alignment total knee arthroplasty.) The steps verified the femoral and tibial components were kinematically aligned coincident to the patient's pre arthritic joint lines, which closely restored the [place] tibial compartment forces and ligament laxities without ligament release. The Wellkeeper[employer] MarketriKA knee, designed specifically for kinematic alignment, fit optimally. The record of verification checks were documented and scanned into the chart. Distal Femoral Resection: Distal Medial 6 mm(cartilage worn), Distal Lateral 8 mm Target thickness of 8mm Unworn, 6mm Worn (No Cartilage). Posterior Femoral Resection: Posterior Medial 5 mm(cartilage worn), Posterior Lateral 7 mm. Target thickness of 7mm Unworn, 5mm Worn (No Cartilage). Description of Procedure General anesthesia was administered. A well-padded tourniquet was placed high on the thigh. The limb was prepped and draped in the usual sterile fashion. The limb was exsanguinated and the tourniquet inflated to 300 mmHg. A longitudinal incision was created over the midline of the knee. Sharp dissection was taken through subcutaneous tissues. Electrocautery was used for hemostasis. A trivector approach to the knee joint was performed. The ACL, anterior horns of the menisci, and fat pad were excised, and a subperiosteal dissection was carried along the posterior medial border of the tibia. The thickness of the [place] patella was measured with a caliper. The patella was resected using the oscillating saw. The best fitting anatomic patella button was selected. The fixation holes were drilled. When the patella and patella buttons combined thickness was thicker than the [place] patella, the patella was recut. Starting midway between the top of the notch in the anterior femoral cortex, I drilled a 9 mm diameter hole parallel to the anterior cortex to minimize flexion of the femoral component and promote patella tracking. I verified the existence of a 5-10 mm bone bridge between the posterior aspect of the hole and the anterior limit of the intercondylar notch. An intraosseous positioning ivonne was inserted 10 cm into the femur perpendicular to the distal joint line and parallel to the anterior cortex. I used a distal femoral referencing guide that compensated 2 mm when the cartilage was worn on the distal medial femoral condyle, and 2 mm when the cartilage was worn on the distal lateral femoral condyle. The basis for setting the distal and posterior femoral resection guide is knowing that the varus and valgus grade II to IV Kellegren-Bi osteoarthritic knees have negligible bone wear at 0? and 90? and that the mean full-thickness cartilage wear approximates 2 mm. I measured the thickness of distal femoral resections with a caliper to +/- 0.5 mm. The thickness of each resection was adjusted to match the thickness of the respective condyle of the femoral component within 0.5 mm of target after compensating for cartilage wear and kerf. When the distal resection was 1-2 mm too thin, a recut guide was used to adjust the cut. When the distal resection was too thick, a 1 or 2 mm thick washer was fixed to the back of the 4-in-1 chamfer block to odell a corrective gap between the femoral component and distal femur. I set posterior femoral referencing guide at 0? orientation to position the pin holes for the 4 in 1 chamfer block. The matthew wing measured the width of the distal femoral resection and selected the size of the 4 in 1 chamfer block and femoral component. The AP sizer confirmed the size. I measured the thickness of the posterior femoral resections with a caliper before making the anterior and chamfer cuts. I adjusted the thicknesses of each resection to match the thickness of the respective condyle of the femoral component within +/-0.5 mm after compensating for cartilage wear and curve. When a posterior resection femoral resection was 1-2 mm too thick or thin a corrective correction was made by shifting or rotating the 4 in 1 chamfer block as needed. The chamfer block was secured in the correct position with compression screws. The anterior and chamfer femoral resections were made. These caliper measurements and corrections verified that the femoral component was set coincident with the patient's pre-arthritic distal and posterior femoral joint lines. I removed all the medial and lateral femoral and tibial osteophytes to restore the pre arthritic length of the medial and lateral collateral ligaments. I sarah AP lines along the major axis of the lateral tibial plateau in between the tibial spines which identified the flexion extension plane of the knee. A conventional extramedullary tibial resection guide was applied to the ankle. An matthew wing was placed medially in the saw slot. The varus valgus angle of the tibial resection guide was adjusted until the guide paralleled the proximal tibial articular surface after compensating for cartilage and bone wear. The slope of flexion extension angle of the tibial resection guide was adjusted until the matthew wing paralleled the slope of the medial tibia after compensating for wear. The AP axis of the tibial resection guide was adjusted parallel to the two lines. The proximal tibia was resected, partially releasing the insertion of the posterior cruciate ligament. The thickness of the medial and lateral lateral tibial condyle was measured at the base of the tibial spines. I visually verified the slope of the medial border of the resection was parallel to the patient's pre arthritic slope after compensating for cartilage and bone wear. I removed the remnants of the posterior horns of the menisci and posterior osteophytes and cauterized the inferior lateral genicular vessels. The Aquamantys bipolar device was also used to for additional hemostasis. When the knee had a preoperative flexion contracture of 20? or more I teased the capsule off the posterior femur with a curved 3 quarter-inch osteotome. I administered the posterior femoral periosteal injection by delivering 10 cc using a 20 gauge spinal needle at the most medial and 10 cc at the most lateral femoral spur surface which reduced the risk of injury to the posterior neurovascular structures. I followed 6 options in a decision tree to fine tune the varus valgus and posterior slope orientation of the tibial component to restore the patient's pre arthritic tibial joint line and limb alignment. First, I adjusted the varus-valgus orientation of the proximal tibia resection working in 1 degree to 2 degree increments until there was negligible medial and lateral lift off of the distal femoral and proximal tibial resection from the spacer block during a varus valgus laxity assessment in extension. I selected the largest anatomic shape trial tibial base plate that fit within the cortical boundary of the proximal tibial resection. The base plate was best fit parallel to the cortical boundary which set the Internal-external orientation of the anterior to posterior and medial to lateral positions. The best fit method set the AP axis of the tibial base plate and insert parallel to the flexion extension plane of the pre arthritic knee. I pinned the trial tibial base plate, prepared the cruciate slot, and fixed the base plate to the tibia with the cruciate stem. I inserted the trial femoral component. The knee was placed in full extension. Varus valgus laxity is of the knee with trial components were assessed. When asymmetric laxity was observed a 1-2 degree varus or valgus recut guide was used to fine tune the tibial resection until the laxity was 1 degree or less in full extension like the [place] knee. The following steps determined the optimal insert thickness within +/-1 mm. First I inserted an insert goniometer that matched the thickness of the spacer block. I reduced the patella and then with the knee in maximum extension, I verified the knee hyperextended a few degrees and had negligible varus valgus laxity, like the pre arthritic knee. He required a release of the posterior lateral capsule. Next, I measured the external tibial orientation which was the angle the insert goniometer intersected the sagittal line on the medial condyle of the femoral trial component. Then with the knee in 15-30 degrees flexion I verified a 3-4 mm gap in the lateral compartment and no gap in the medial compartment during a 2nd varus valgus laxity test. Next, I placed the knee in 90? of flexion and the foot resting on the operating table and measured the internal tibial orientation. I repeated the steps until I identified the insert thickness that provided the highest external tibia orientation in extension and the highest internal tibial orientation at 90? flexion without anterior lift-off of the insert from the tibial base plate. The insert with this thickness was implanted. I applied a posterior drawer test with the tibia distracted by gravity and verified no posterior subluxation of the tibia relative to the femur. The patella remained centered on the trochlea and tracked well throughout the entire arc of flexion and extension. I used pulse lavage to clean the bony surfaces of debris and dried bone. I cemented the tibial, femoral, and patellar components using 1 bag of methylmethacrylate with Gentamycin, then rechecked the stability at full extension, 15-30 degrees, and 90? flexion and verified amish of the entire arc of motion of the knee. The circulating nurse confirmed the sponge and needle counts were correct. I used pulse lavage to rinse the joint and wound. The extensor mechanism was closed with interrupted #1 Vicryl suture and #1 running Stratafix suture. The subcutaneous layer was closed with interrupted #1 Vicryl suture followed by 2-0 Stratafix and 3-0 Stratafix. Steri-Strips placed on the skin. Silver impregnated occlusive dressing applied to the wound. A light gauze wrap and Sarmad bandage were placed. The patient was transferred to the recovery room in stable condition. There were no complications. Implants Medacta GMK spheriKA Femoral component SpheriKA size 4+, tibial component size +3i4, vitamin-E flex insert, thickness 10mm, Anatomic patella implant size 2. Estimated Blood Loss 50 Tourniquet Time Total Tourniquet Time: 70 Drains No Pathology None sent Complications No immediate complications Condition Stable Disposition PACU [facility] Billing Surgery - Charge Forward: Surgery Billing
--- NOTE | 2024-02-11 17:04 | ADMGEN ---
This patient, Dana Castaneda, was admitted to 2 Medical Room 260-01. Patient/family oriented to hospital policies and general routines including ID bracelet, bed and alarms, visiting hours, pain management, procedures, bathroom and other care routines, personal items, smoking policy, room service/diet, and visiting hours. Information on how to activate the Rapid Response Team has been discussed. Patient/Family are encouraged to report perceived risks to care and to ask questions if they do not understand what they are told or what they should do.
[2024-02-11] MEDS: SENNA/DOCUSATE SODIUM TABLET 2 TAB PO (17:44)
[2024-02-11] MEDS: oxyCODONE/ACETAMINOPHEN (*CRX) 5-325 MG TABLET 1 TABLET PO (17:45)
[2024-02-11] MEDS: ASPIRIN 81 MG ENTERIC TABLET PO (17:45)
[2024-02-11] MEDS: ACETAMINOPHEN 325 MG TABLET 650 MG PO (17:45)
[2024-02-11] MEDS: HYDROmorphone HCL INJ (*CRX) 1 MG/ML SYR IV PUSH ×2 (18:33→21:50)
[2024-02-11] MEDS: CYCLOBENZAPRINE HCL 10 MG TABLET PO (20:21)
[2024-02-11] MEDS: FAMOTIDINE 20 MG TABLET PO (20:22)
[2024-02-12 00:11] VITALS: BP 109/68; PULSE 79; RESP 18; TEMP 36.4; O2SAT 96
[2024-02-12] MEDS: oxyCODONE/ACETAMINOPHEN (*CRX) 10-325 MG TABLET 1 TAB PO ×2 (01:01→09:11)
[2024-02-12] MEDS: HYDROmorphone HCL INJ (*CRX) 1 MG/ML SYR IV PUSH (03:23)
[2024-02-12 03:26] VITALS: BP 119/65; PULSE 69; RESP 20; TEMP 36.6; O2SAT 98
[2024-02-12] MEDS: ceFAZolin 2 GM/D5W 50 ML 2 GM/50 ML BAG IVPB ×2 (04:43→12:31)
[2024-02-12 06:04] LABS: Basophils Percent Auto 0.2 % (0.2-1.2); Eosinophils Percent Auto 0.1 % (0-4.4); Hematocrit 38.5 % (37.0-47.0); Hemoglobin 12.7 g/dL (12.0-15.0); Immature Granulocyte Absolute 0.07 K/mm3 (0.00-0.031); Immature Granulocyte Percent A 0.5 % (0-0.5); Lymphocytes Absolute Auto 1.61 K/mm3 (0.9-3.2); Lymphocytes Percent Auto 10.9 % (18.3-44.2); Mean Corpuscular Hemoglobin 30.2 pg (26-34); Mean Corpuscular Volume 91.4 fl (80-100); Mean Platelet Volume 10.1 fl (7.4-10.4); Monocytes Absolute Auto 0.9 K/mm3 (0.1-0.6); Monocytes Percent Auto 6.2 % (2.6-8.5); Neutrophils Absolute Auto 12.2 K/mm3 (1.3-6.7); Neutrophils Percent Auto 82.1 % (45.5-73.1); Platelet Count Result 351 k/mm3 (150-375); Red Blood Count 4.21 M/mm3 (4.2-5.4); Red Cell Distribution Width 13.4 % (11.5-14.5); White Blood Count 14.8 K/mm3 (4.5-10.0)
[2024-02-12 06:20] LABS: Anion Gap 6 mmol/L (4-12); Blood Urea Nitrogen 14 mg/dL (7-17); Calcium 9.1 mg/dL (8.4-10.2); Carbon Dioxide 28 mmol/L (22-30); Chloride 104 mmol/L (98-107); Estimated CRCL calculation 104 ml/min; Estimated Glomerular Filt Rate > 60; Glucose 110 mg/dL (65-110); Potassium 4.3 mmol/L (3.4-5.0); Sodium 138 mmol/L (137-145)
--- NOTE | 2024-02-12 08:07 | P.DS_ITS ---
DS: Admitting Diagnosis Discharge Date 02/12/24 Admitting Diagnosis knee arthritis DS: Discharge Diagnosis Discharge Diagnosis (1) Status post total left knee replacement: Code(s): Z96.652 - Presence of left artificial knee joint Status: Acute Assessment and Plan: Postop day 1: Left total knee arthroplasty. Patient tolerated procedure well. No complications. Pain manageable with pain medication. No numbness or tingling. We had a lengthy discussion regarding postoperative wound care, limitations, expectations, and exercises. Patient shows good understanding. She has had initial physical therapy and is tolerating it well. DVT prophylaxis: 81 mg baby aspirin b.i.d. for 14 days. Pain medication: Percocet. Diclofenac. Prednisone. Patient has followup appointment with Dr. Ty in 3 weeks. DS: Summary Hospital Course Reason for hospitalization: Total knee arthroplasty Hospital Course: Patient tolerated procedure well. Has had initial PT/OT. No complications. Pain well managed. Status at Discharge Functional status at discharge: uses cane/walker Overall status at discharge: patient is progressing back to baseline Time Spent with Patient Time attestation: Total time spent providing and/or coordinating discharge services: Exam Narrative: Overweight 53 y/o female. Resting comfortably in bed. No acute distress. A&O x3. Wearing compression socks bilaterally. Dressing intact with no drainage. Moderate swelling. No ecchymosis. No erythema. No hematoma. Good early range of motion. Calf nontender. Neurologic status intact. No varicosities. Distal pulses palpable. DS: Data Data Completed and Pending Labs on day of discharge: Labs from last 24 hours 02/12/24 05:07 WBC 14.8 H RBC 4.21 Hgb 12.7 Hct 38.5 MCV 91.4 MCH 30.2 MCHC 33.0 RDW 13.4 Plt Count 351 MPV 10.1 Immature Gran % (Auto) 0.5 Neut % (Auto) 82.1 H Lymph % (Auto) 10.9 L [place] % (Auto) 6.2 Eos % (Auto) 0.1 Baso % (Auto) 0.2 Lymph # (Auto) 1.61 [place] # (Auto) 0.9 H Eos # (Auto) 0.0 Baso # (Auto) 0.0 Abs Immat Gran (auto) 0.07 H Absolute Neuts (auto) 12.2 H Absolute Nucleated RBC 0.000 Nucleated RBC % 0.0 Sodium 138 Potassium 4.3 Chloride 104 Carbon Dioxide 28 Anion Gap 6 BUN 14 Creatinine 0.60 L Estim Creat Clear Calc 104 Estimated GFR > 60 Glucose 110 Calcium 9.1 Discharge Plan Discharge Patient Disposition: Home, Self-Care Discharge Instructions: See green instruction sheets Stand Alone Forms: General Discharge Instructions Follow-up/Referrals: Rachel Brady PA [Physician [employer] Vault Installer] - Discharge Medications: New aspirin 81 mg tablet,delayed release (DR/EC) 81 mg PO BID 14 Days Qty: 28 0RF prednisone 5 mg tablet 5 mg PO DAILY 21 Days Qty: 21 0RF oxycodone-acetaminophen 5-325 mg tablet 1 - 2 tablet PO Q4-6H MDD 6 PRN (Reason: pain) 7 Days Qty: 30 0RF Continued tirzepatide (weight loss) 12.5 mg/0.5 mL pen injector 12.5 mg subcut WEEKLY Qty: 2 2RF Patient Comments: TAKING ON TUESDAYS FOR WEIGHT LOSS EyeProtect 7,160-113-100 [id number] Tablet 1 tablet PO DAILY multivitamin Tablet 1 tablet PO DAILY diclofenac sodium 75 mg tablet,delayed release (DR/EC) See Rx Instructions .ROUTE .COMPLEX Qty: 60 0RF Dose Instruction: Take 1 tablet by mouth twice daily Patient Comments: PT HAS NOT RESUMED SINCE BEFORE SURGERY 10/27/23 Rx Instructions: Take 1 tablet by mouth twice daily hydrochlorothiazide 12.5 mg tablet See Rx Instructions .ROUTE .COMPLEX Qty: 90 0RF Dose Instruction: Take 1 tablet by mouth once daily Rx Instructions: Take 1 tablet by mouth once daily metoprolol succinate 50 mg tablet extended release 24 hr See Rx Instructions .ROUTE .COMPLEX Qty: 90 0RF Dose Instruction: Take 1 tablet by mouth once daily Patient Comments: QAM Rx Instructions: Take 1 tablet by mouth once daily amlodipine-valsartan 5-160 mg tablet See Rx Instructions .ROUTE .COMPLEX Qty: 90 0RF Dose Instruction: Take 1 tablet by mouth once daily Patient Comments: QAM Rx Instructions: Take 1 tablet by mouth once daily solifenacin 10 mg tablet 10 mg PO DAILY Qty: 90 3RF Held acetaminophen 500 mg Capsule 1,000 mg PO Q6H PRN (Reason: Pain, Moderate) Hold Instructions: Resume on 03/03/24. Do not take more than 3,000 mg in 24 hours. Pain pills have tylenol in it.
[2024-02-12] MEDS: SOLIFENACIN 5 MG TABLET 10 MG PO (09:03)
[2024-02-12] MEDS: ASPIRIN 81 MG ENTERIC TABLET PO (09:04)
[2024-02-12] MEDS: hydroCHLOROthiazide 12.5 MG CAPSULE PO (09:04)
[2024-02-12] MEDS: predniSONE 5 MG TABLET PO (09:04)
[2024-02-12] MEDS: SENNA/DOCUSATE SODIUM TABLET 2 TAB PO (09:04)
[2024-02-12 09:05] VITALS: PULSE 72
[2024-02-12] MEDS: polyethylene glycoL 3350 17 GM POWD.PACK PO (09:05)
[2024-02-12] MEDS: METOPROLOL SUCCINATE EXT REL 50 MG TABCR PO (09:05)
[2024-02-12] MEDS: FAMOTIDINE 20 MG TABLET PO (09:05)
[2024-02-12 09:33] VITALS: BP 124/68; PULSE 79; RESP 20; TEMP 36.6; O2SAT 97
[2024-02-12 11:46] VITALS: O2SAT 96
[2024-02-12] MEDS: ACETAMINOPHEN 325 MG TABLET 650 MG PO (12:30)
[2024-02-12 14:18] VITALS: BP 120/70; PULSE 77; RESP 18; TEMP 36.9; O2SAT 95
== END 2024-02-12 14:22 | disposition home or self-care (01) ==
LOC: ANHSURGERY 11:54 → ANH2MED 16:38
PROVIDERS: Physician Assistant Surgical; PCP Family Medicine; Visit Provider Orthopaedic Surgery
PROC: (CPT 27447; principal; 2024-02-11 13:30)
DX: M17.12 Unilateral primary osteoarthritis, left knee (principal); I10 Essential (primary) hypertension; N32.81 Overactive bladder; E66.9 Obesity, unspecified; Z68.30 Body mass index [BMI] 30.0-30.9, adult; Z79.85 Long-term (current) use of injectable non-insulin antidiabetic drugs; Z79.82 Long term (current) use of aspirin
CPT/HCPCS: 27447; 36415; 73560; 80048; 85025; 97110; 97161; 97165; 97530; C1776; A9270; C1713; J0171; J0690; J1100; J1171; J1885; J2003; J2250; J2270; J2405; J2704; J2795; J3010; J7120; J7512

== ENCOUNTER 2024-05-20 08:40 | Outpatient (CLI) | payer OTHER, SELFPAY ==
--- NOTE | ~2024-05-20 | US_ITS ---
Limited Abdominal Sonogram: Real-time sonographic imaging of the right upper quadrant was performed. Clinical History: Abnormal findings of blood chemistry Findings: The liver appears normal with no evidence of solid mass lesion or bile duct dilatation. Ma in portal vein demonstrates normal direction of flow. Small hepatic cyst noted. The gallbladder is we ll distended, and demonstrates large echogenic, shadowing gallstone. No gallbladder wall thickening. The common bile duct measures 6 mm. The visualized pancreas, aorta, and IVC are unremarkable. Impression: Cholelithiasis. Reviewed, dictated and finalized at location M. NT LAW SPECIALIST Impression: Cholelithiasis.
== END 2024-05-20 08:41 | disposition home or self-care (01) ==
LOC: MICIMG 08:42
PROVIDERS: PCP Family Medicine; Visit Provider Student in an Organized Health Care Education/Training Program
DX: R74.8 Abnormal levels of other serum enzymes (principal); R94.5 Abnormal results of liver function studies
CPT/HCPCS: 76705

== ENCOUNTER 2025-03-02 11:15 | Outpatient (CLI) | payer OTHER, SELFPAY ==
[2025-03-02 12:09] LABS: Influenza A QL RT-PCR Negative (Negative); Influenza B QL RT-PCR Negative (Negative); SARS-CoV-2 RNA PCR Positive (Negative)
--- OUTSIDE RECORDS SUMMARY | 2025-03-02 12:46 | XMS_ITS | Clinical Summary ---
Author Organization [facility] Address [address] [place] [id number] Care Team Providers Care Motion Picture Critic Name Role Phone Unavailable Primary Care Provider Unavailabl e Social History Tobacco Use Types Packs/Day Years Used Date Smoking Tobacco: Never Assessed Comments Unknown Sex and Gender Information Value Date Recorded Sex Assigned at Not on file Legal Sex Female 5:54 PM [employer]ACKING [employer] Gender Identity Not on file Sexual Orientation Not on file Last Filed Vital Signs Vital Sign Reading Time Taken Comments Blood Pressure 188/112 09/17/2016 5:22 PM CDT Pulse 64 09/17/2016 5:22 PM CDT Temperature - - Respiratory Rate - - Oxygen Saturation - - Inhaled Oxygen Concentration - - Weight 102.1 kg (225 lb) 09/17/2016 5:22 PM CDT Height 170.2 cm (5' 7) 09/17/2016 5:22 PM CDT Body Mass Index 35.24 09/17/2016 5:22 PM CDT Plan of Treatment Health Maintenance Due Date Last Done Comments Cervical Cancer Screening Pa p Smear (Age 30 to 64) Every 3 Years 1969 Colorectal Cancer Screening Colonoscopy (10 Years) 1969 Annual Physical 1972 Hepatitis C 11/22/1987 DTaP, Tdap and Td Vaccines ( 1 - Tdap) 1988 Hepatitis B Vaccines (1 of 3 - 19+ 3-dose series) 1988 Cervical Cancer Screening Pa p with HPV Testing (Age 30 to 64) Every 5 Years 11/22/1999 Cervical Cancer Screening with HPV 11/22/1999 Mammogram Screening 2009 Pneumococcal Vaccine: 50+ Ye ars (1 of 1 - PCV) 11/22/2019 Zoster Vaccines (1 of 2) 11/22/2019 COVID-19 Vaccine ( - 2024-2 6 season) 2024 Influenza Adult (#1) 2024 Hepatitis A Vaccines Aged Out No long er eligible based on patient's age to complete this topic Meningococcal B Vaccine Aged Out No l onger eligible based on patient's age to complete this topic Meningococcal Vaccine Aged Out No ran moi eligible based on patient's age to complete this topic RSV Immunizations Under 20 Months Aged Out No longer eligible based on patient's age to complete this topic
--- OUTSIDE RECORDS SUMMARY | 2025-03-02 12:46 | XMS_ITS | Clinical Summary ---
Author Organization [facility] [address] Address [address] [place] [address] Care Team Providers Care Mortuary Beautician Name Role Phone Yenni Munoz MD Primary Care Provider Allergies Active Allergy Reactions Criticality Noted Date Comments Penicillins Rash Reaction: Rash, Surgical History Surgery Date Site/Laterality Comments SECTION section Medical History Medical History Date Comments Hx Other Medical acl repair Family History Medical History Relation Name Comments Cancer Other Family history of Cancer; Coronary artery disease Other Fami ly history of Coronary artery disease; Diabetes Other Family history of Diabetes mellitus; Hypertension Other Family history of Hypertension; Relation Name Status Comments Other Social History Tobacco Use Types Packs/Day Years Used Date Smoking Tobacco: Never Assessed Alcohol Use Standard Drinks/Week Comments Yes 0 (1 standard drink = 0.6 oz pur e alcohol) Comments Unknown Sex and Gender Information Value Date Recorded Sex Assigned at Not on file Legal Sex Female 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 GUARD Gender Identity Not on file Sexual Orientation Not on file Last Filed Vital Signs Vital Sign Reading Time Taken Comments Blood Pressure - - Pulse - - Temperature - - Respiratory Rate - - Oxygen Saturation - - Inhaled Oxygen Concentration - - Weight 88.5 kg (195 lb) 02/11/2018 3:03 PM BANK GUARD Height 170.2 cm (5' 7) 02/11/2018 3:03 PM BANK GUARD Body Mass Index 30.54 02/11/2018 3:03 PM BANK GUARD Plan of Treatment Not on file [place] [employer] [place] Care Teams Mortuary Beautician Relationship Specialty Start Date End Date Yenni Munoz MD [address] [facility] [address] [place] [address] PCP - General Family Medicine 02/05/18
--- OUTSIDE RECORDS SUMMARY | 2025-03-02 12:46 | XMS_ITS | Clinical Summary ---
Author Organization [email or web address] Address [address] [place] [address] Care Team Providers Care Marketing Information Manager Name Role Phone Yenni Munoz MD Primary Care Provider + Source Comments [email or web address],non-owned Affiliates and Associated Physician Practices is amultiple site organization consisting of ambulatory clinics and hospital sitesin [place], [place], [place] and [place]. This disclosure is being madepursuant to the Care Everywhere program and may not contain all information available regarding this patient. 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 Gender Identity Not on file Sexual Orientation Not on file Plan of Treatment Health Maintenance Due Date Last Done Comments COLOGUARD (AGES 45-75) - COL ON CA SCREENING 1969 COLON MONITORING 1969 COLONOSCOPY - COLON CA SCREENING 1969 CT COLONOGRAPHY - COLON CA SCREENING 1969 Colorectal Cancer Screening 1969 FIT - COLON CA SCREENING 1969 FLEX SIG - COLON CA SCREENING 1969 LIPID TESTING 1969 MAMMOGRAM 1969 HIV SCREENING 1984 HEPATITIS C SCREENING 11/17/1987 DTAP/TDAP/TD VACCINES (1 - Tdap) 1988 HEPATITIS B VACCINE (1 of 3 - 19+ 3-dose series) 1988 Cervical Cancer Screening 1990 PAP SMEAR 1990 PAP with HPV 11/22/1999 PNEUMOCOCCAL VACCINE 50+ (1 of 1 - PCV) 11/22/2019 ZOSTER VACCINE (1 of 2) 11/22/2019 DEPRESSION SCREENING 03/30/2024 COVID-19 VACCINE (1 - 2024-2 6 season) 2024 INFLUENZA VACCINE (#1) 2024 HIB VACCINE Aged Out No longer eligi ble based on patient's age to complete this topic HPV VACCINE Aged Out No longer eligi ble based on patient's age to complete this topic MENINGOCOCCAL (Group B) VACC INE SHARED DECISION-MAKING Aged Out No longer eligibl e based on patient's age to complete this topic MENINGOCOCCAL GROUPS A/C/Y/W VACCINE Aged Out No longer eligible b ased on patient's age to complete this topic Insurance [employer] Care Teams Marketing Information Manager Relationship Specialty Start Date End Date Yenni Munoz MD [address] [place] [address] PCP - General 09/14/20
--- OUTSIDE RECORDS SUMMARY | 2025-03-02 12:46 | XMS_ITS | Encounter Summary ---
Author Organization [facility] Address [address] [place] [address] Care Team Providers Care Bookkeeping Machine Operator Name Role Phone Yenni Munoz MD Primary Care Provider + Encounter Details Date Type Department Care Team (Late st Contact Info) Description 07/26/2024 Lab Requisition [facility] - DermPath Lab [address] [facility] [place] [phone] Ashley Hyot DO [address] [facility] [address] [place] [address] Social History Tobacco Use Types Packs/Day Years Used Date Smoking Tobacco: Never Assessed Comments Unknown Sex and Gender Information Value Date Recorded Sex Assigned at Not on file 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 Gender Identity Not on file Sexual Orientation Not on file documented as of this encounter Plan of Treatment Not on file documented as of this encounter Procedures Procedure Name Priority Date/Time Associated Diagnosis Comments DERMATOPATHOLOGY Routine 07/26/2024 3:38 PM CDT documented in this encounter Results * DERMATOPATHOLOGY (07/26/2024 3:38 PM CDT) Case Report Dermatopathology Report Case: [id number] Authorizing Provider: Ashley Hoyt DO Collected: 07/26/2024 03:38 PM Ordering Location: [facility] - Received: 07/28/2024 06:37 AM DermPath Lab Pathologist: Laureano Gerard MD Specimen: Skin, right scalp 4:16 PM CDT DERMATOPATHOLOGY LABORATORY Final Diagnosis Specimen A. 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 The specimen consists of a 8x4x10 mm piece of skin. The specimen is serially sectioned and a client relations representative section is submitted in cassette 1. Jar 1. 4:16 PM CDT DERMATOPATHOLOGY LABORATORY Microscopic Description Specimen A. SKIN, right scalp: There are numerous mature adipocytes intermingled with monomorphous spindle-shaped fibroblasts. The spindled cells are positive for CD34. RB1 immunohistochemical stain was performed; however, much of the the tissue absent and unavailable for evaluation. Examination of the focal available tissue demonstrates loss of RB1 staining within the spindled cell proliferation. 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 This case was also reviewed by Dr. Mendy Dias who agrees with the diagnosis. 4:16 PM CDT DERMATOPATHOLOGY LABORATORY Disclaimer An external and internal positive and negative controls are appropriate for the histochemical, immunohistochemical and immunofluorescence stain(s) in this case (if any), except where stated explicitly. The performance characteristics of the stain(s) cited in this report were developed and its performance characteristic determined by the Dermatopathology Laboratory at [facility], directed by Dr. Daniel Gerard. These tests need not be, and therefore are not, approved by the [place] Food and Drug Administration. The tests are used for clinical purposes. Billing Codes Specimen Charges Stain Charges 97803 1 03014 54096 1 1 4:16 PM CDT DERMATOPATHOLOGY LABORATORY Embedded Images 4:16 PM CDT DERMATOPATHOLOGY LABORATORY Pathology/Cytolo gy TISSUE SPECIMEN FROM SKIN / Unknown 07/26/2024 3:38 PM CDT 07/28/2024 6:37 AM CDT Ashley Hoyt DO LAB - PATHOLOGY/CYTOLOGY ORDERABLES Final Result DERMATOPATHOLOGY LABORATORY [facility] - Department of Dermatology [facility] [address] [place] [address], [address] [phone] documented in this encounter Visit Diagnoses Not on filedocumented in this encounter Care Teams Bookkeeping Machine Operator Relationship Specialty Start Date End Date Yenni Munoz MD [address] [place] [address] PCP - General 09/14/20 documented as of this encounter
--- OUTSIDE RECORDS SUMMARY | 2025-03-02 12:46 | XMS_ITS | Encounter Summary ---
Author Organization [facility] Address [address] [place] [address] Care Team Providers Care Autocad Electrical Designer Name Role Phone Yenni Munoz MD Primary Care Provider + Encounter Details Date Type Department Care Team (Late st Contact Info) Description 06/04/2023 Lab Requisition [facility] - DermPath Lab [address] [facility] [place] [phone] Ashley Hoyt DO [address] [facility] [address] [place] [address] Social History Tobacco Use Types Packs/Day Years Used Date Smoking Tobacco: Never Assessed Comments Unknown Sex and Gender Information Value Date Recorded Sex Assigned at Not on file Legal Sex Female 12:38 PM ECOLOGIST TECHNICIAN Gender Identity Not on file Sexual Orientation Not on file documented as of this encounter Plan of Treatment Not on file documented as of this encounter Procedures Procedure Name Priority Date/Time Associated Diagnosis Comments DERMATOPATHOLOGY Routine 06/04/2023 2:32 PM ECOLOGIST TECHNICIAN documented in this encounter Results * DERMATOPATHOLOGY (06/04/2023 2:32 PM ECOLOGIST TECHNICIAN) Case Report Dermatopathology Report Case: [id number] Authorizing Provider: Ashley Hoyt DO Collected: 06/04/2023 02:32 PM Ordering Location: [facility] - Received: 06/05/2023 01:22 PM DermPath Lab Pathologist: Maribeth Dias MD Specimen: Skin, left mons 2:15 PM CDT DERMATOPATHOLOGY LABORATORY Final Diagnosis Specimen A. SKIN, left mons: COMPOUND MELANOCYTIC NEVUS (D22.5) 2:15 PM CDT DERMATOPATHOLOGY LABORATORY at 1414 CDT Clinical History Nevus R/O Atypia; Growing irregular Border, Irregular Color 2:15 PM CDT DERMATOPATHOLOGY LABORATORY Gross Description Specimen A: Received is one formalin filled container labeled with the patient's name and designated left mons. The specimen consists of a shave biopsy measuring 10x9x2 mm. Jar 0. 2:15 PM CDT DERMATOPATHOLOGY LABORATORY Microscopic Description Specimen A. SKIN, left mons: There are nests of melanocytes at the dermal-epidermal junction and within the dermis. 2:15 PM CDT DERMATOPATHOLOGY LABORATORY Disclaimer An external and internal positive and negative controls are appropriate for the histochemical, immunohistochemical and immunofluorescence stain(s) in this case (if any), except where stated explicitly. The performance characteristics of the stain(s) cited in this report were developed and its performance characteristic determined by the Dermatopathology Laboratory at [facility], directed by Dr. Daniel Gerard. These tests need not be, and therefore are not, approved by the [place] Food and Drug Administration. The tests are used for clinical purposes. Billing Codes Specimen Charges Stain Charges 72005 1 2:15 PM CDT DERMATOPATHOLOGY LABORATORY Embedded Images 2:15 PM CDT DERMATOPATHOLOGY LABORATORY Pathology/Cytolo gy TISSUE SPECIMEN FROM SKIN / Unknown 06/04/2023 2:32 PM ECOLOGIST TECHNICIAN 06/05/2023 1:22 PM ECOLOGIST TECHNICIAN us Ashley Hoyt DO LAB - PATHOLOGY/CYTOLOGY ORDERABLES Final Result DERMATOPATHOLOGY LABORATORY [facility] - Department of Dermatology [address], [address] [phone] documented in this encounter Visit Diagnoses Not on filedocumented in this encounter Care Teams Autocad Electrical Designer Relationship Specialty Start Date End Date Yenni Munoz MD [address] [place] [address] PCP - General 09/14/20 documented as of this encounter
--- OUTSIDE RECORDS SUMMARY | 2025-03-02 12:46 | XMS_ITS | Encounter Summary ---
Author Organization [facility] Address [address] [place] [address] Care Team Providers Care Hvac Technician Residential Name Role Phone Yenni Munoz MD Primary Care Provider + Encounter Details Date Type Department Care Team (Late st Contact Info) Description 06/06/2024 Lab Requisition [facility] - DermPath Lab [address] [facility], [place] [phone] Ashely Hoyt DO [address] [facility] [address] [place] [address] Social History Tobacco Use Types Packs/Day Years Used Date Smoking Tobacco: Never Assessed Comments Unknown Sex and Gender Information Value Date Recorded Sex Assigned at Not on file Legal Sex Female 12:38 PM CLINICAL EDUCATION ASSISTANT Gender Identity Not on file Sexual Orientation Not on file documented as of this encounter Plan of Treatment Not on file documented as of this encounter Procedures Procedure Name Priority Date/Time Associated Diagnosis Comments DERMATOPATHOLOGY Routine 06/06/2024 2:36 PM CDT documented in this encounter Results * DERMATOPATHOLOGY (06/06/2024 2:36 PM CDT) Case Report Dermatopathology Report Case: [id number] Authorizing Provider: Ashley Hoyt DO Collected: 06/06/2024 02:36 PM Ordering Location: [facility] - Received: 06/08/2024 09:02 AM DermPath Lab Pathologist: Laureano Gerard MD Specimen: Skin, left inner arm 2:57 PM CDT DERMATOPATHOLOGY LABORATORY Final Diagnosis Specimen A. SKIN, left inner arm: INTRADERMAL MELANOCYTIC NEVUS (D22.62) 2:57 PM CDT DERMATOPATHOLOGY LABORATORY at 1457 CDT Clinical History Nevus, R/O Atypia 2:57 PM CDT DERMATOPATHOLOGY LABORATORY Gross Description Specimen A: Received is one formalin filled container labeled with the patient's name and designated left inner arm. The specimen consists of a shave biopsy measuring 5x4x1 mm. Jar 0. 2:57 PM CDT DERMATOPATHOLOGY LABORATORY Microscopic Description Specimen A. SKIN, left inner arm: There are nests of cytologically bland melanocytes within the dermis that mature with depth. 2:57 PM CDT DERMATOPATHOLOGY LABORATORY Disclaimer An external and internal positive and negative controls are appropriate for the histochemical, immunohistochemical and immunofluorescence stain(s) in this case (if any), except where stated explicitly. The performance characteristics of the stain(s) cited in this report were developed and its performance characteristic determined by the Dermatopathology Laboratory at [facility], directed by Dr. Daniel Gerard. These tests need not be, and therefore are not, approved by the [place] Food and Drug Administration. The tests are used for clinical purposes. Billing Codes Specimen Charges Stain Charges 07956 1 2:57 PM CDT DERMATOPATHOLOGY LABORATORY Embedded Images 2:57 PM CDT DERMATOPATHOLOGY LABORATORY Pathology/Cytolo gy TISSUE SPECIMEN FROM SKIN / Unknown 06/06/2024 2:36 PM CDT 06/08/2024 9:02 AM CDT us Ashley Hoyt DO LAB - PATHOLOGY/CYTOLOGY ORDERABLES Final Result DERMATOPATHOLOGY LABORATORY [facility] - Department of Dermatology [address] [phone] documented in this encounter Visit Diagnoses Not on filedocumented in this encounter Care Teams Hvac Technician Residential Relationship Specialty Start Date End Date Yenni Munoz MD [address] [place] [address] PCP - General 09/14/20 documented as of this encounter
== END 2025-03-02 11:16 | disposition home or self-care (01) ==
LOC: ANHLAB 11:16
PROVIDERS: PCP Family Medicine
DX: U07.1 COVID-19 (principal)
CPT/HCPCS: 87502; 87635